=== PATIENT | male | born 1990 | race Caucasian/White ===

== ENCOUNTER 2016-08-14 10:29 | Emergency (ER) | payer SELFPAY ==
[~2016-08-14] VITALS: Ht 175.3 cm; Wt 78.2 kg
[~2016-08-14 10:29] MED LIST: OXYC1TAB3 PO
[2016-08-14 10:32] VITALS: TEMP 37.4; Ht 175.3 cm; Wt 78.2 kg
[2016-08-14] MEDS ORDERED: CLIN300C2 PO (11:22)
[2016-08-14] MEDS ORDERED: IBUP-1428 PO (11:22)
[2016-08-14] MEDS ORDERED: OXYC1TAB3 PO (11:22)
--- NOTE | 2016-08-14 11:23 | EMERGENCY ROOM VISIT NOTE ---
ED Visit Note First contact with patient: 10:54 Chief Complaint: Dental Pain History of Present Illness: This patient is a 25-year-old male who presents to the Emergency Department this morning for evaluation of their dental pain . Patient believes the pain is arising from RIGHT upper molar tooth which they report developed yesterday. They describe the pain as constant and they now report radiation to the face. They have tried dqsx-tdi-wxxwqum medications for the pain with minimal relief of symptoms. They report increased pain with eating and drinking. Patient rates his current discomfort as a 9/10. The patient does not have a dentist appointment set up at this time. Patient did have a dentist appointment during previous visit for this symptom, however he did not have the $1800 to have a root canal performed. Patient currently denies any associated fevers, chills, visual disturbances, neck pain/stiffness, or trismus. They report no drainage from the tooth. Patient is not a current smoker. Medications: No current medication. Allergies: Acetaminophen, hydrocodone, penicillins, tramadol, Vicodin PMH: No pertinent past medical history. SHx: Patient is a 25-year-old male who lives locally. ROS: All pertinent positive and negative review of systems are appropriately documented in the History of Present Illness. Physical Exam: VITAL SIGNS Vital signs and nursing notes were reviewed. GENERAL 25-year-old male appearing his stated age who is in no acute distress. Communicates well with provider and answers questions appropriately. HEAD Normocephalic, Atraumatic. EYES PERRL with EOMI bilaterally. EARS No deformities of external structures noted on gross examination bilaterally. No pain elicited with palpation of the tragus bilaterally. External auditory canals without discharge or otorrhea. Tympanic membranes pearly ragland without retraction or bulging. NOSE Midline and without cyanosis. No epistaxis or purulent drainage noted. Septum midline without deviation or septal hematoma noted. MOUTH/OROPHARYNX Without perioral cyanosis. Buccal mucosa pink and moist and without leukoplakia. Tongue midline with equal elevation of palate bilaterally. No tonsillar hypertrophy, erythema, or exudates noted. Fair dentition noted. The RIGHT 1st molar tooth is completely carious in the central portion of the tooth. Surrounding gums without erythematous, edematous changes or discharge. Exquisite tenderness to palpation of affected tooth. No trismus. No fluctuance to palpation or active drainage appreciated. No sublingual edema. NECK Neck with FROM. Supple to palpation. No lymphadenopathy noted. No nuchal rigidity. ED Course: Patient was seen and evaluated by myself. It was discussed with the patient at great length that the Emergency Department is not an appropriate place for continued treatment of dental pain issues. Patient acknowledges understanding. Patient will be placed on a course of Motrin 800 mg, Oxy IR #6, and Cleocin. Patient was educated on worrisome symptoms for return visit to the Emergency Department. Patient was discharged to home afebrile and in good condition. Impression: Odontalgia Discharge Instructions: You have been treated in the Emergency Department for Dental Pain. You have been prescribed OxyIR to be used for pain control. This is a narcotic medication. You cannot drive or consume alcohol while on this medicine. This medicine should only be used for pain that cannot be controlled with over-the- counter pain medicines. You were prescribed Cleocin to be taken as prescribed. This is an antibiotic. All antibiotics have the potential to cause diarrhea. Stop this medication and contact a medical provider if you were to develop any significant adverse side effects including: wheezing, shortness of breath, passing out, vomiting, or a diffuse rash. Always take antibiotics as directed and COMPLETE the ENTIRE course regardless of the improvement of your symptoms. You have been prescribed Motrin 800 mg. This is an anti-inflammatory medication used to help decrease your symptoms and improve your pain. Please take this medication as prescribed. It is best to take this medication with food. Please to not take this antibiotic with other NSAIDS including: Ibuprofen, Advil, Naproxen, Aspirin, Aleve, Celebrex, etc. For pain control, you can use the following cgtk-hoo-zhssxlq medicines (if >12 yo): - Regular strength (325mg/tab) Tylenol (acetaminophen) 2 tabs every 4-6 hours as needed. Do not exceed 12 tablets in a 24 hour period. Avoid taking more than 4 grams (4000 mg) of Tylenol per day. This includes any other sources of acetaminophen you may take on a regular basis. Refrain from smoking cigarettes or using chewing tobacco until you have been evaluated by your dentist. Keeping beverages lukewarm and consuming soft foods can decrease your pain. Warm compresses over the affected area may offer some relief. You MUST seek evaluation of your dental pain by a dentist following your visit to the Emergency Department. The Emergency Department is not capable of treating dental issues long-term. You should call your dentist as soon as possible to make an appointment for evaluation of your dental pain. Return to the emergency department if you develop the following symptoms despite treatment course outlined above: fever, intractable pain, increased redness, swelling, or purulent discharge. Problem List Medical Problems: (1) Broken arm Status: Resolved Current/Historical Medications Scheduled Clindamycin Hcl (Cleocin), 300 MG PO QID Scheduled PRN Ibuprofen (Motrin), 800 MG PO Q8H PRN for Pain Oxycodone Ir (Roxicodone Ir), 1-2 TAB PO Q4H PRN for Pain Allergies Coded Allergies: Acetaminophen (Unverified Allergy, Intermediate, RASH, 08/14/16) Hydrocodone (Unverified Allergy, Intermediate, RASH, 08/14/16) Penicillins (Verified Allergy, Unknown, unknown, 08/14/16) Tramadol (Verified Allergy, Unknown, Nausea, 08/14/16) Uncoded Allergies: VICODAN (Allergy, Mild, RASH, 05/08/16) Vital Signs Date Time Temp Pulse Resp B/P Pulse Ox O2 Delivery O2 Flow Rate FiO2 08/14/16 11:31 76 120/71 97 08/14/16 10:32 37.4 84 18 116/63 99 Room Air Departure Information Impression Primary Impression: Odontalgia Dispostion Home / Self-Care Condition GOOD Prescriptions Clindamycin Hcl (CLEOCIN) 300 Mg Cap 300 MG PO QID for 10 Days, #40 CAP Prov: Bob Barkley PA-C 08/14/16 Oxycodone Ir (Roxicodone Ir) 5 Mg Tab 1-2 TAB PO Q4H Y for Pain, #6 TAB For Initial Treatment Prov: Bob Barkley PA-C 08/14/16 Ibuprofen (Motrin) 800 Mg Tab 800 MG PO Q8H Y for Pain, #7 TAB Prov: Bob Barkley PA-C 08/14/16 Referrals No Doctor, Assigned (PCP) Patient Instructions My [facility] Additional Instructions You have been treated in the Emergency Department for Dental Pain. You have been prescribed OxyIR to be used for pain control. This is a narcotic medication. You cannot drive or consume alcohol while on this medicine. This medicine should only be used for pain that cannot be controlled with over-the- counter pain medicines. You were prescribed Cleocin to be taken as prescribed. This is an antibiotic. All antibiotics have the potential to cause diarrhea. Stop this medication and contact a medical provider if you were to develop any significant adverse side effects including: wheezing, shortness of breath, passing out, vomiting, or a diffuse rash. Always take antibiotics as directed and COMPLETE the ENTIRE course regardless of the improvement of your symptoms. You have been prescribed Motrin 800 mg. This is an anti-inflammatory medication used to help decrease your symptoms and improve your pain. Please take this medication as prescribed. It is best to take this medication with food. Please to not take this antibiotic with other NSAIDS including: Ibuprofen, Advil, Naproxen, Aspirin, Aleve, Celebrex, etc. For pain control, you can use the following oojo-bwy-ujmlerf medicines (if >12 yo): - Regular strength (325mg/tab) Tylenol (acetaminophen) 2 tabs every 4-6 hours as needed. Do not exceed 12 tablets in a 24 hour period. Avoid taking more than 4 grams (4000 mg) of Tylenol per day. This includes any other sources of acetaminophen you may take on a regular basis. Refrain from smoking cigarettes or using chewing tobacco until you have been evaluated by your dentist. Keeping beverages lukewarm and consuming soft foods can decrease your pain. Warm compresses over the affected area may offer some relief. You MUST seek evaluation of your dental pain by a dentist following your visit to the Emergency Department. The Emergency Department is not capable of treating dental issues long-term. You should call your dentist as soon as possible to make an appointment for evaluation of your dental pain. Return to the emergency department if you develop the following symptoms despite treatment course outlined above: fever, intractable pain, increased redness, swelling, or purulent discharge.
[2016-08-14 11:31] VITALS: BP 120/71; PULSE 76; O2SAT 97
== END 2016-08-14 11:32 | disposition home or self-care (01) ==
LOC: C.EDB 10:33 → C.EDD 11:32
DX: K08.89 Other specified disorders of teeth and supporting structures (principal); Z88.0 Allergy status to penicillin; Z88.5 Allergy status to narcotic agent; Z88.6 Allergy status to analgesic agent; Z88.8 Allergy status to other drugs, medicaments and biological substances

== ENCOUNTER 2017-06-09 21:41 | Emergency (ER) | payer SELFPAY ==
[~2017-06-09] VITALS: Ht 172.7 cm; Wt 81.7 kg
[2017-06-09 21:44] VITALS: TEMP 36.7; Ht 172.7 cm; Wt 81.7 kg
[2017-06-09] MEDS ORDERED: CEFTRIAXONE SOD 350MG/ML 1 GM VIAL IM STA (22:04)
[2017-06-09] MEDS ORDERED: AZITHROMYCIN 250 MG TAB PO STA (22:04)
[2017-06-09 22:24] LABS: URINE APPEARANCE CLEAR (CLEAR); URINE BILIRUBIN NEG (NEG); URINE COLOR YELLOW; URINE NITRITE NEG (NEG); URINE PH 5.5 (4.5-7.5); URINE SPECIFIC GRAVITY 1.027 (1.000-1.030); UROBILINOGEN NEG (NEG); ZZUR CULT IF INDIC CLEAN CATCH NO
[2017-06-09 22:28] LABS: MANUAL MICROSCOPIC REQUIRED? NO; REVIEW REQ? NO
--- NOTE | 2017-06-09 22:47 | EMERGENCY ROOM VISIT NOTE ---
History First contact with patient: 21:49 Chief Complaint: DYSURIA Stated Complaint: BLADDER PAIN, PAIN URINATING, BECKER TO [facility] Nursing Triage Summary: pt states "the girl i've been sleeping with just got tested positive for std's. I don't have insurance, i was wondering if i could get tested. I don't really have symptoms. I wouldn't have known otherwise." pt states partner tested positive for chlamydia and herpes. pt reports small amount of burning with urination that began today. History of Present Illness The patient is a 26 year old male who presents to the Emergency Room with complaints of dysuria and exposure to Chlamydia and herpes. Patient states he just informed his girlfriend that she tested positive for chlamydia and herpes. Patient states that he's been having some dysuria. Patient denies rash, penile discharge, penile pain, testicular pain, abdominal pain, fevers, sore throat, rectal pain. No prior STIs. Patient is requesting treatment for this. Review of Systems See HPI for pertinent positives & negatives. A total of 10 systems reviewed and were otherwise negative. Past Medical/Surgical History Medical Problems: (1) Broken arm Family History No significant family history Social History Smoking Status: Never Smoker Drug Use: none Marital Status: in relationship Housing Status: lives with family Occupation Status: employed Current/Historical Medications No Active Prescriptions or Reported Meds Physical Exam Vital Signs Date Time Temp Pulse Resp B/P (MAP) Pulse Ox O2 Delivery O2 Flow Rate FiO2 06/09/17 21:44 36.7 66 18 141/79 97 Room Air Physical Exam VITALS: Vitals are noted on the nurse's note and reviewed by myself. Vital signs stable. GENERAL: Pleasant male, in no acute distress, nondiaphoretic, well-developed well-nourished. SKIN: Capillary reflex less than 2 seconds. HEENT: Normocephalic. PERRLA. EOMI. Nares patent. Mucous membranes moist. Neck is supple without nuchal rigidity. HEART: Regular rate and rhythm without murmurs gallops or rubs. LUNGS: Clear to auscultation bilaterally without wheezes, rales or rhonchi. No retractions or accessory muscle use. ABDOMEN: Positive bowel sounds x 4. Normal tympanic percussion. Soft, nontender, without masses or organomegaly. Mandujano sign negative. No guarding or rebound tenderness. exam: Normal external male genitalia without rashes or lesions. Cultures taken and sent. Service Girl present MUSCULOSKELETAL: No gross musculoskeletal defects. NEURO: Patient was alert and oriented to person place and time. Normal sensation to light and sharp touch No focal neurological deficits. Medical Decision & Procedures Laboratory Results Test 06/09/17 22:05 06/09/17 22:09 Urine Color YELLOW Urine Appearance CLEAR (CLEAR) Urine pH 5.5 (4.5-7.5) Urine Specific [place] 1.027 (1.000-1.030) Urine Protein NEG (NEG) Urine Glucose (UA) NEG (NEG) Urine Ketones NEG (NEG) Urine Occult Blood NEG (NEG) Urine Nitrite NEG (NEG) Urine Bilirubin NEG (NEG) Urine Urobilinogen NEG (NEG) Urine Leukocyte Esterase NEG (NEG) Medications Administered Medications (Trade) Dose Ordered Sig/Chun Route Start Time Stop Time Status Last Admin Dose Admin Ceftriaxone Sodium (Rocephin Im) 250 mg NOW STAT IM 06/09/17 22:04 06/09/17 22:07 DC 06/09/17 22:19 250 MG Azithromycin (Zithromax Tab) 1,000 mg NOW STAT PO 06/09/17 22:04 06/09/17 22:07 DC 06/09/17 22:19 1,000 MG ED Course Prior records reviewed and summarized as above. Triage Nursing notes reviewed. The patient's history was concerning for dysuria with STI exposure. Differential diagnosis: Etiologies such as chlamydia, gonorrhea, herpes, UTI, as well as others were entertained.. Physical examination: As above ER treatment provided: Rocephin, Zithromax On reassessment the patient felt better. Diagnostics interpreted by me: The labs revealed negative urine GC, depending This appears to be possible STI. Patient was profoundly treated pending culture results. He was advised to abstain from intercourse until culture results are reviewed and both have tested negative. He is advised to always use protection when having intercourse and follow-up family care in a few days or here in the ER sooner for fevers, pain, worsening signs or symptoms or as needed. By the evaluation outlined above emergent etiologies such as UTI, as well as others were deemed relatively unlikely. The pt informed about the findings as listed above. All questions were answered and pleased with the treatment. Return instructions were outlined and the patient was discharged in stable condition. Referral: The patient was referred back to primary care physician for follow-up in 2 to 3 days for a recheck of the current condition. Medical Decision As above Medication Reconcilliation Current Medication List: was personally reviewed by me Blood Pressure Screening Patient's blood pressure: Normal blood pressure Impression Primary Impression: Need for prophylaxis against sexually transmitted diseases Additional Impression: Dysuria Departure Information Dispostion Home / Self-Care Condition GOOD Prescriptions No Active Prescriptions or Reported Meds Referrals Luis Espitia Jr,D.O. (PCP) Patient Instructions My [facility] Additional Instructions Recommend no intercourse until your review your culture results and are negative. Always use protection when having intercourse. Ibuprofen(Motrin, Advil) may be used for fever or pain. Use 600mg every six hours as needed. Take with food. Avoid using more than 2400mg in a 24 hour period. Do not use 2400mg per day for more than three consecutive days without physician direction. Prolonged inappropriate use can lead to stomach upset or ulcers. (AND/OR) Acetaminophen(Tylenol) may be used for fever or pain. Use 1000mg every six hours as needed. Avoid using more than 3000mg in a 24 hour period. Rest and drink plenty of fluids as tolerated. Continue current medications. Return to the ER immediately for penile pain, abdominal pain, vomiting, fevers, chest pains, difficulty breathing, worsening of your condition, or as needed. Follow up with your primary physician in 2-3 days for a recheck of your current condition. Problem Qualifiers
[2017-06-09 23:00] VITALS: BP 122/57; PULSE 65; O2SAT 98
== END 2017-06-09 23:00 | disposition home or self-care (01) ==
LOC: C.EDB 21:43 → C.EDC 23:00
DX: Z29.8 Encounter for other specified prophylactic measures (principal); Z20.2 Contact with and (suspected) exposure to infections with a predominantly sexual mode of transmission; R30.0 Dysuria

== ENCOUNTER 2025-06-21 21:57 | Inpatient (IN) ==
--- NOTE | 2025-06-21 22:09 | Emergency Department Note ---
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 unremarkable. The kidneys are normal in size and attenuation. There is no hydronephrosis or perinephric fat stranding. No renal calculi or renal masses are identified. The ureters are normal in caliber and no ureteral calculi are seen. The bladder is normal in contour. Pelvic viscera are unremarkable. Fecal and gaseous distension of colon. No focal or diffuse bowel wall thickening or evidence of bowel obstruction is identified. No imaging evidence of appendicitis. Abdominal and pelvic vasculature is patent. No adenopathy or fluid collections are seen. No aggressive appearing osseous lesions are identified. IMPRESSION: Mild pneumomediastinum noted. Hepatic steatosis. Fecal and gaseous distension of colon. Electronically signed by Raymundo Akhtar 06-22-2025 12:36 AM Chest X-Ray 06/21/25 22:10 Exam(s): XR CXR 1 VIEW EXAM: XR Chest, 1 View CLINICAL HISTORY: Reason for exam: Left sided chest/abd pain. TECHNIQUE: Frontal view of the chest. COMPARISON: No relevant prior studies available. FINDINGS: Lungs: No consolidation. Pleural space: No pleural effusion is seen. No pneumothorax. Heart: The heart is normal in size. Mediastinum: Unremarkable. Bones/joints: Unremarkable. IMPRESSION: No acute pulmonary disease. Electronically signed by: David Ramirez MD 06/22/25 00:32 AM Chest CTA 06/21/25 22:45 EXAM: CT angio chest PE protocol CLINICAL HISTORY: PE TECHNIQUE: Contiguous axial images were obtained from the neck base through the upper abdomen following intravenous administration of iodinated contrast material. Angiographic images were processed, 3D MIP images were acquired for interpretation. If IV contrast material had not been administered, the likelihood of detecting abnormalities relevant to the patient's condition would have been substantially decreased. Coronal and sagittal 3-D MIPs were likewise performed and indicated to increase the sensitivity of detectin diffuse clinically relevant pathology. CT scan was performed according to ALARA (as low as reasonably achievable). COMPARISON: 22:25:55 ASSESSMENT TECHNICIAN. FINDINGS: Mild pneumomediastinum is noted involving facial plane of superior and middle mediastinal structure. Adequate contrast bolus without evidence of pulmonary embolism. The central airways are patent. The lungs are clear. No pleural effusion. The heart, aorta, and pulmonary arteries are of normal size and configuration. There are no appreciable coronary artery and aortic atherosclerotic calcifications. No pericardial effusion is identified. The thyroid is unremarkable. No mediastinal, hilar, or axillary lymphadenopathy is noted. No suspicious lytic or sclerotic osseous lesions are identified. IMPRESSION: 1. No evidence of pulmonary embolism or pulmonary disease. Mild pneumomediastinum is noted involving facial plane of superior and middle mediastinal structure.-new finding. No other new interval abnormality since prior study. Electronically signed by Raymundo Akhtar 06-22-2025 12:[address] 06/22/25 00:54 EXAM: CT chest diagnostic w con CLINICAL HISTORY: Oral contrast to eval for esoph perf etc TECHNIQUE: Contiguous axial images were obtained from the neck base through the upper abdomen following administration of oral conrast only. In addition, sagittal and coronal reconstructions were performed. CT scan was performed according to ALARA (as low as reasonably achievable). COMPARISON: 22:48:25 ASSESSMENT TECHNICIAN . FINDINGS: Mild pneumomediastinum is noted involving facial plane of superior and middle mediastinal structure. No obvious leakage of oral contrast / no evidence of esophageal perforation. The lungs are clear, with no focal areas of consolidation. No pulmonary nodules are seen. The central airways are patent. There are no pleural effusions. No pneumothorax is seen. No obvious lymphadenopathy seen. The visualized thyroid is unremarkable. No cardiomegaly. No pericardial effusion is identified. Imaged portions of the upper abdomen are unremarkable. No aggressive appearing osseous lesions are identified. IMPRESSION: Mild pneumomediastinum is noted involving facial plane of superior and middle mediastinal structure.-stable. No obvious leakage of oral contrast / no evidence of esophageal perforation. Electronically signed by Raymundo Akhtar 06-22-2025 02:27 AM Discharge Plan Visit Data Chief Complaint: Vomiting Stated Complaint: VOMITING, DEHYRDATED ED Provider: Suzy Payne ED Midlevel Provider: Perlita Mueller Discharge Problem: Pneumomediastinum, Dehydration, Nausea & vomiting, Tachycardia, Sepsis Patient Disposition: Admitted As Inpatient Condition: Serious Discharge Instructions Interventions: ED Discharge Assessment Last Done: 06/22/25 05:05
[2025-06-21] MEDS: SODIUM CHLORIDE 0.9% 1,000 ML IV ONE ×2 (22:17)
[2025-06-21] MEDS: FAMOTIDINE 20MG IV PUSH 20 MG/5 ML SYR IV STA (22:18)
[2025-06-21] MEDS: ONDANSETRON INJ 2 MG/ML 2 ML VIAL IV STA (22:18)
[2025-06-21] MEDS: ACETAMINOPHEN 1,000 MG/100 ML VIAL IV STA (22:19)
[2025-06-21 22:26] LABS: Hematocrit (blood only) 44.6 % (42.0-52.0); Hemoglobin 16.3 g/dL (14.0-18.0); Immature Granulocytes # (auto) 0.06 K/uL (0.01-0.20); Immature Granulocytes % (auto) 0.4 %; Mean Corpuscular Hemoglobin 29.7 pg (25.0-34.0); Mean Corpuscular Volume 81.4 fL (80.0-100.0); Platelet Count 413 K/uL (130-400); RDW Standard Deviation 38.0 fL (36.4-46.3); Red Blood Count 5.48 M/uL (4.70-6.10); White Blood Count 14.72 K/ul (4.8-10.8)
[2025-06-21 22:44] LABS: Alanine Aminotransferase 29.0 U/L (7-52); Albumin Globulin Ratio 1.6 (0.9-2); Albumin Level 5.3 gm/dl (3.4-5.0); Alkaline Phosphatase 110.0 U/L (34-104); Anion Gap 15.0 (3-11); Bilirubin,Total 0.9 mg/dl (0.2-1.0); Blood Urea Nitrogen 17.0 mg/dl (6-23); Calcium 10.3 mg/dl (8.6-10.3); Carbon Dioxide 27.0 mmol/L (21-32); Chloride 103.0 mmol/L (98-107); Creatinine Clr Calc Pharmacy 83.9 ml/min; Globulin 3.4 gm/dl (2.5-4.0); Glucose 219.0 mg/dl (70-99(Fasting)); Lipase 10.0 U/L (11-82); Magnesium 1.8 mg/dl (1.7-2.4); Potassium 3.0 mmol/L (3.5-5.1); Sodium 145.0 mmol/L (136-145); Total Protein 8.7 gm/dl (6.0-8.3)
[2025-06-21] MEDS: SODIUM CHLORIDE 0.9% 500 ML IV ONE (22:55)
[2025-06-21] MEDS: LORazepam 1 MG/1 ML SYR ED Inj Use IV STA (23:22)
[2025-06-21] MEDS: OPTIRAY 320 125ml IV ONE (23:56)
[2025-06-22 00:14] LABS: Influenza A virus by PCR Negative (Neg); Influenza B virus by PCR Negative (Neg); SARS CoV2 RNA(COVID-19) Ceph NEGATIVE (Negative)
[2025-06-22 00:33] LABS: Appearance Urine Clear (Clear); Bacteria Urine Automated None Seen (None Seen); Cast Urine Automated >20 /lpf (0-2); Glucose Urine UA 1+ (Negative); RBC Urine Automated 0-2 /hpf (0-2); WBC Urine Automated 0-5 /hpf (0-5)
--- NOTE | 2025-06-22 00:33 | CT Scan Report ---
EXAM: CT angio chest PE protocol CLINICAL HISTORY: PE TECHNIQUE: Contiguous axial images were obtained from the neck base through the upper abdomen following intravenous administration of iodinated contrast material. Angiographic images were processed, 3D MIP images were acquired for interpretation. If IV contrast material had not been administered, the likelihood of detecting abnormalities relevant to the patient's condition would have been substantially decreased. Coronal and sagittal 3-D MIPs were likewise performed and indicated to increase the sensitivity of detectin diffuse clinically relevant pathology. CT scan was performed according to ALARA (as low as reasonably achievable). COMPARISON: 22:25:55 MAMMOGRAPHER. FINDINGS: Mild pneumomediastinum is noted involving facial plane of superior and middle mediastinal structure. Adequate contrast bolus without evidence of pulmonary embolism. The central airways are patent. The lungs are clear. No pleural effusion. The heart, aorta, and pulmonary arteries are of normal size and configuration. There are no appreciable coronary artery and aortic atherosclerotic calcifications. No pericardial effusion is identified. The thyroid is unremarkable. No mediastinal, hilar, or axillary lymphadenopathy is noted. No suspicious lytic or sclerotic osseous lesions are identified. IMPRESSION: 1. No evidence of pulmonary embolism or pulmonary disease. Mild pneumomediastinum is noted involving facial plane of superior and middle mediastinal structure.-new finding. No other new interval abnormality since prior study. Electronically signed by Raymundo Akhtar 06-22-2025 12:33 AM
--- NOTE | 2025-06-22 00:33 | XRay Report ---
Exam(s): XR CXR 1 VIEW EXAM: XR Chest, 1 View CLINICAL HISTORY: Reason for exam: Left sided chest/abd pain. TECHNIQUE: Frontal view of the chest. COMPARISON: No relevant prior studies available. FINDINGS: Lungs: No consolidation. Pleural space: No pleural effusion is seen. No pneumothorax. Heart: The heart is normal in size. Mediastinum: Unremarkable. Bones/joints: Unremarkable. IMPRESSION: No acute pulmonary disease. Electronically signed by: David Ramirez MD 06/22/25 00:32 AM
--- NOTE | 2025-06-22 00:36 | CT Scan Report ---
EXAM: CT abd pelvis IV con only CLINICAL HISTORY: Abdominal pain, N/V TECHNIQUE: Contiguous axial images were obtained from the level of the diaphragm to the pubic symphysis with intravenous contrast. Coronal and sagittal reconstructions were likewise performed and indicated to increase the sensitivity for detecting clinically relevant pathology. If IV contrast material had not been administered, the likelihood of detecting abnormalities relevant to the patient's condition would have been substantially decreased. CT scan was performed according to ALARA (as low as reasonably achievable). COMPARISON: None. FINDINGS: Mild pneumomediastinum noted. The visualized lung bases are clear. The liver is normal in size and reduced attenuation. No focal liver lesions are seen. There is no intra or extrahepatic biliary ductal dilatation. Hepatic vasculature is patent. The gallbladder is present. The spleen, pancreas, and adrenal glands are unremarkable. The kidneys are normal in size and attenuation. There is no hydronephrosis or perinephric fat stranding. No renal calculi or renal masses are identified. The ureters are normal in caliber and no ureteral calculi are seen. The bladder is normal in contour. Pelvic viscera are unremarkable. Fecal and gaseous distension of colon. No focal or diffuse bowel wall thickening or evidence of bowel obstruction is identified. No imaging evidence of appendicitis. Abdominal and pelvic vasculature is patent. No adenopathy or fluid collections are seen. No aggressive appearing osseous lesions are identified. IMPRESSION: Mild pneumomediastinum noted. Hepatic steatosis. Fecal and gaseous distension of colon. Electronically signed by Raymundo Akhtar 06-22-2025 12:36 AM
[2025-06-22] MEDS: PROMETHAZINE 25 MG/51 ML BAG IV STA (00:54)
[2025-06-22 00:58] LABS: Anion Gap 10.0 (3-11); Blood Urea Nitrogen 13.0 mg/dl (6-23); Calcium 8.4 mg/dl (8.6-10.3); Carbon Dioxide 25.0 mmol/L (21-32); Chloride 109.0 mmol/L (98-107); Creatinine Clr Calc Pharmacy 114.4 ml/min; Glucose 128.0 mg/dl (70-99(Fasting)); Potassium 3.1 mmol/L (3.5-5.1); Sodium 144.0 mmol/L (136-145)
[2025-06-22] MEDS: MoRPHine SULFATE 4 MG/ML 1 ML CARP\\VIAL IV STA (01:22)
[2025-06-22] MEDS: KETOROLAC TROMETHAMINE 15 MG/ML VIAL IV ONE (01:23)
[2025-06-22] MEDS: PIPERACILLIN/TAZOBACTAM 4.5 GM/100 ML BAG IV ONE (01:43)
--- NOTE | 2025-06-22 02:28 | CT Scan Report ---
EXAM: CT chest diagnostic w con CLINICAL HISTORY: Oral contrast to eval for esoph perf etc TECHNIQUE: Contiguous axial images were obtained from the neck base through the upper abdomen following administration of oral conrast only. In addition, sagittal and coronal reconstructions were performed. CT scan was performed according to ALARA (as low as reasonably achievable). COMPARISON: 22:48:25 ROLL CARRIER . FINDINGS: Mild pneumomediastinum is noted involving facial plane of superior and middle mediastinal structure. No obvious leakage of oral contrast / no evidence of esophageal perforation. The lungs are clear, with no focal areas of consolidation. No pulmonary nodules are seen. The central airways are patent. There are no pleural effusions. No pneumothorax is seen. No obvious lymphadenopathy seen. The visualized thyroid is unremarkable. No cardiomegaly. No pericardial effusion is identified. Imaged portions of the upper abdomen are unremarkable. No aggressive appearing osseous lesions are identified. IMPRESSION: Mild pneumomediastinum is noted involving facial plane of superior and middle mediastinal structure.-stable. No obvious leakage of oral contrast / no evidence of esophageal perforation. Electronically signed by Raymundo Akhtar 06-22-2025 02:27 AM
[2025-06-22] MEDS: PANTOprazole 40 MG/10 ML SYR IV ONE (02:57)
[2025-06-22] MEDS: LACTATED RINGER'S 1,000 ML IV SCH (03:25)
[2025-06-22] MEDS: POTASSIUM CHLORIDE / WTR 10 MEQ/100 ML PLCT IV SCH ×2 (03:26→13:43)
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
[2025-06-22 04:00] LABS: Amphetamines+Metham, Urine Neg (Neg); MDMA (Ecstacy), Urine Neg (Neg); Marijuana, Urine Pos (Neg)
[2025-06-22 04:05] LABS: Anion Gap 13.0 (3-11); Blood Urea Nitrogen 14.0 mg/dl (6-23); Calcium 9.2 mg/dl (8.6-10.3); Carbon Dioxide 25.0 mmol/L (21-32); Chloride 109.0 mmol/L (98-107); Creatinine Clr Calc Pharmacy 110.7 ml/min; Glucose 165.0 mg/dl (70-99(Fasting)); Magnesium 1.7 mg/dl (1.7-2.4); Potassium 3.2 mmol/L (3.5-5.1); Sodium 147.0 mmol/L (136-145)
[2025-06-22] MEDS: MAGNESIUM SULFATE / D5W 1 GM/100 ML BAG IV SCH (04:23)
[2025-06-22] MEDS ORDERED: ACETAMINOPHEN 1,000 MG/100 ML VIAL IV PRN (05:12)
[2025-06-22] MEDS ORDERED: diphenhydrAMINE 50 MG/ML VIAL IV PRN ×2 (05:12→17:51)
[2025-06-22] MEDS ORDERED: MoRPHine SULFATE 4 MG/ML 1 ML CARP\\VIAL IV PRN (05:12)
[2025-06-22] MEDS: SODIUM CHLORIDE 0.9% 500 ML IV SCH (05:27)
--- NOTE | 2025-06-22 05:41 | Billing Data ---
Date of Service June 22, 2025 Coding Level of Care Code 00869 CRITICAL CARE
[2025-06-22] MEDS: PIPERACILLIN/TAZOBACTAM 4.5 GM/100 ML BAG IV SCH (07:52)
[2025-06-22] MEDS: PANTOprazole 40 MG/10 ML SYR IV SCH (07:52)
[2025-06-22] MEDS ORDERED: CEFEPIME 2000MG 2,000 MG/20 ML SYR IV SCH (08:00)
--- NOTE | 2025-06-22 09:07 | Hospitalist Progress Note ---
Date of Service June 22, 2025 Assessment & Plan (1) Hypokalemia: (2) Tachycardia: (3) Nausea & vomiting: (4) Pneumomediastinum: (5) Fentanyl dependence: (6) Opioid withdrawal: Plan The patient is a 34-year-old male with no significant past medical history who presents to the emergency department with his mother for evaluation of nausea, vomiting and dehydration. He reports that on Sunday evening, 06/19, he ate chicken noodle soup which was thawed and frozen recurrently. After admission he also admitted he takes fentanyl regularly and last time he took was on 06/19( Sunday). He has been taking regularly since 1.5 years. Clinical presentation including tachycardia, HTN, dilated pupil in background of fentanyl use, Fentanyl positive on UDSA, last dose 3 days prior, nausea, vomiting defines fentanyl withdrawal, with COWS of 12 this morning, symptoms. He does have some elevated WBCs, however he was pretty dehydrated on on arrival. Admitted in PCU status, patient persisted in hyperdynamic vitals, however improving. #Fentanyl withdrawal; mild on 06/22 AM. *last dose on 06/19/2025. - COWS: 12. - Sx: HTN, Pupil dilation, Tachycardia, Flushing, Nausea, vomiting, anxious. - Patient initially treated symptomatically with Diazepam. - After careful evaluation and extensive discussion with Lanre he is willing ot try Suboxone therapy. Even though COWs opioid withdrawal score was 10 by afternoon, given it was 12 this morning and patient is admitted in the hospital and we also got appointment with Dr. Ekaterina Stein on 06/24/2025 who is willing to follow him for outpatient refill of Suboxone, we discussed with pharmacist. They agree with starting Suboxone. Given fentanyl might last longer in system, we will start with low dose 2 mg/0.25 mg of Suboxone. Plan to escalate dose depending on patient's tolerance, tomorrow. - Lanre made aware of possible withdrawal symptoms getting worse after Suboxone. He agrees with trial of Suboxone. Plan: Suboxone 2/0.25 mg Stat. Reassess in 1 hour. If no withdrawal repeat Subo xone 2 mg, until max dose of 8 mg. Hydroxyzine 25 mg PO as needed for agitation Benadryl 25 mg Iv as needed for nausea #QT prolongation - Avoid QT prolonging meds. - Optimize Mg/ K: Goal Mg. 2, K> 4. - Repeat EKG tomorrow. #Nausea/ Vomiting - Likely because of Fentanyl as well. - No diarrhoea decreases likelihood of food poisoning. Keep eye on this. Given h/o significant source for food poisoning, if episode of diarrhoea, will plan stool studies. #Hypokalemia - K: 3.2, BMP Q4H - Repeat K: 3.2, KCL IV 10 mEQ X 4 - Pending repeat lab. #HTN - Presentation as opioid withdrawal. - BP as high as 170s/ 100s. - Will plan for clondine is BP >200. Dispo: Pending stabilization, Continue PCU tele DVT prophylaxis: Non pharma Diet: Clear liquid, If persistent vomiting.nausea; keep NPO Admission and Anticipated Discharge Date Admission Date: June 22, 2025 Supervising Physician Co-Signing Physician Notes Resident Physician Supervision Note: I personally examined the patient and verified all guerra points of history and exam, discussed case, and agree with decision making with Dr. Cornejo Did speak to the patient and also spoke to the patient's mother with both the mother and the patient in her room we asked permission to disclose information to the patient's mother which the patient agreed to. At this point time patient is agreeable to considering outpatient opiate addiction treatment and we did procure an outpatient provider who can prescribe Suboxone therapy today. Therefore we will begin Suboxone therapy as an inpatient. For the patient's pneumomediastinum he continues to improve having improved vital signs and we are going to continue pip-tazo with eventual transition to Augmentin. Patient is mildly hypertensive and tachycardic but this is improving over the day. Pulmonary medicine did see the patient and offers no additional diagnosis or therapeutic interventions. Lungs are clear bilaterally does have some pleuritic mediastinal pain Continue supportive care with eventual transition outpatient treatment for opiate addiction I discussed the case with the resident and agree with the findings and plan as documented in the note. Any exceptions or clarifications are listed here: Documented By: Erick Morris MD Subjective Mr. Zhu is 34 yo admitted with fentanyl withdrawal symptoms, COWS 12 this morning. He does have h/o regular fentanyl intake daily for last 1.5 years and has not been taking since Sunday. His brother recently with ROCHEL[facility], Methamphetamine was tested per patient mother. Lanre is in relative calmer state of mind, when I reassessed in afternoon, He does not admit taking any other recreational substance except regular fentanyl and occasional Marijuana. Lanre was still flushed, occasionally shaking his body on bed, tachycardic, hypertensive until this afternoon. Mom was on bedside this morning, Lanre initially did not want to discuss his situation especially fentanyl use with his mom, but late when I revisited him afternoon, he shared that he ended up telling his mom. 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 Does not have friend [email or web address] to understand this or he feels comfortable sharing this. Last time he snorted fentanyl was on 06/19 ( 3 days back). He [facility] to get this, his brother who was 2 year older than him, often helped with the supply, now he is no more. Lanre expresses interest to get out of opioid use. 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 He feels he is ready to start Suboxone. He already knows about this, he has never tried this in past, but was willing to try especially after he learned it during borther's incidence. Review of Systems Review of Systems: As per HPI Physical Exam Physical Exam: Constitutional: Anxious looking, Occasional shaking of body, no tremors on outstretched hands, diffusely flushed skin, snorting frequently. Occasional hiccups noted. HEENT: Moderately dilated pupil, Atraumatic, Normocephalic, conjunctival injection+, CVS: S1 S2 no murmur, Regular Rhythm, no LE edema Respiratory: BL equal air entry with NVBS. No rhonchi, wheezes, or crackles. No increased work of breathing GI: Soft, Nondistended, Nontender, Normal Bowel sounds + MSK: No gross deformities noted Skin: Hot, Dry, diffuse flushing, no localized rash or piloerection noted. Neuro: Alert, Oriented to TPP, No Focal deficit Psych: Cooperative on exam, able to make decision Results & Data Results & Data Vital Signs (Past 12 Hours) Vital Signs Temp Pulse Pulse Resp BP BP Pulse Ox 06/22/25 09:00 37 C 110 H 16 167/100 H 91 06/22/25 08:00 107 H 22 172/93 H 91 06/22/25 08:00 37 C 06/22/25 07:00 102 H 17 177/100 H 90 06/22/25 06:36 37.1 C 104 H 25 H 175/94 H 94 06/22/25 06:30 113 H 17 95 06/22/25 06:00 37.1 C 120 H 24 172/126 H 97 06/22/25 05:59 164/88 H 06/22/25 05:12 37.3 C 06/22/25 05:12 06/22/25 05:11 37.3 C 108 H 28 H 186/106 H 99 06/22/25 05:09 37.3 C 122 H 15 186/106 H 93 06/22/25 05:05 06/22/25 05:03 116 H 16 97 06/22/25 05:00 06/22/25 05:00 37.3 C 108 H 18 186/106 H 99 06/22/25 04:32 37.4 C 115 H 20 178/98 H 95 06/22/25 03:36 104 H 20 167/105 H 95 06/22/25 02:30 115 H 22 167/88 H 95 06/22/25 02:13 132 H 06/22/25 01:30 120 H 22 155/87 H 95 06/22/25 00:31 182/84 H 06/22/25 00:25 37.2 C 114 H 22 193/88 H 97 06/21/25 22:48 95 06/21/25 22:47 157/119 H 06/21/25 22:18 84 06/21/25 21:59 36.8 C 111 H 19 190/101 H 96 Pulse Ox O2 Del Method O2 Del Method 06/22/25 09:00 Room Air 06/22/25 08:00 Room Air 06/22/25 08:00 06/22/25 07:00 06/22/25 06:36 Room Air 06/22/25 06:30 Room Air 06/22/25 06:00 Room Air 06/22/25 05:59 06/22/25 05:12 06/22/25 05:12 99 Room Air 06/22/25 05:11 Room Air 06/22/25 05:09 Room Air 06/22/25 05:05 Room Air 06/22/25 05:03 Room Air 06/22/25 05:00 Room Air 06/22/25 05:00 Room Air 06/22/25 04:32 Room Air 06/22/25 03:36 Room Air 06/22/25 02:30 Room Air 06/22/25 02:13 06/22/25 01:30 Room Air 06/22/25 00:31 06/22/25 00:25 06/21/25 22:48 Room Air 06/21/25 22:47 06/21/25 22:18 06/21/25 21:59 Room Air
[2025-06-22 09:24] LABS: Anion Gap 9.0 (3-11); Blood Urea Nitrogen 14.0 mg/dl (6-23); Calcium 8.8 mg/dl (8.6-10.3); Carbon Dioxide 28.0 mmol/L (21-32); Chloride 110.0 mmol/L (98-107); Creatinine Clr Calc Pharmacy 132.5 ml/min; Glucose 127.0 mg/dl (70-99(Fasting)); Magnesium 2.1 mg/dl (1.7-2.4); Potassium 3.2 mmol/L (3.5-5.1); Sodium 147.0 mmol/L (136-145)
--- NOTE | 2025-06-22 09:26 | Pulmonary Consultation ---
Date of Consultation June 22, 2025 Assessment & Plan (1) Pneumomediastinum: (2) Nausea & vomiting: Plan Patient is a 34-year-old male who presented to the hospital for evaluation of chest pain, nausea, vomiting. This patient had been ill for approximately 48 hours prior to this. Thought he had food poisoning. Also endorses a history of heavy marijuana use. The patient was found to have pneumomediastinum on CT imaging without pneumothorax. No evidence of contrast leakage from the esophagus. Pulmonary has been consulted for further recommendations. Diagnoses: Pneumomediastinum Vomiting, marijuana use, likely hyperemesis syndrome Recommendations/plan: I personally reviewed his CT imaging. He has some mild pneumomediastinum. I do not see any evidence of pneumothorax. The patient does not have any recent coughing. He was retching and vomiting a lot however. Pneumomediastinum likely related to esophageal etiology rather than airway. May have developed a small tear in the esophagus. CT with oral contrast did not show any obvious leakage, could consider GI con sultation for further evaluation. Has been started on Zosyn, would continue this for now. No further recommendations from a pulmonary standpoint. Will sign off. Please call directly with any questions. History of Present Illness Reason for Consultation: Pneumomediustinum Requesting Physician: Dr. Cornejo Attending Physician: Erick Morris MD History of Present Illness Patient is a 34-year-old male with a past medical history significant for THC use. The patient presented to the hospital on 06/21/2025 for evaluation of nausea, vomiting and dehydration. The patient endorsed that on the evening of 06/19/2025 he ate what he thought was bad chicken noodle soup and he started vomiting on 06/20/2025. He was having severe vomiting with retching. The patient then developed chest discomfort and persistent vomiting and presented to the hospital. In the emergency department the patient was found to be tachycardic with some mild lactic acidosis which improved after fluid resuscitation. He had some hypokalemia and hypomagnesemia. Viral PCR was negative.Imaging of the chest with x-ray chest x-ray was obtained which showed no acute pulmonary disease. CT angio chest was then obtained which did not show evidence of PE however pneumomediastinum was appreciated involving the fascial planes and superior and middle mediastinal structures. No pneumothorax was appreciated. Lungs were clear. The patient was then taken for imaging of the CT chest with oral contrast which did not show any obvious leakage of oral contrast which would suggest esophageal perforation. The patient was admitted to the hospital. He was continued on IV fluids. Was started on Zosyn. Pulmonary was consulted for pneumomediastinum. When I evaluated the patient he is resting comfortably in bed. He is still tachycardic. Appears flushed. He says that he is having some mild chest discomfort, noticing it in the bottom of his thoracic cavity. Denies any pain in his neck or central chest. He denies any previous pulmonary disorders. He does endorse smoking marijuana very heavily. 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 On exam his lungs are clear. I do not appreciate any subcutaneous emphysema in the neck or upper chest. The patient denies any coughing recently. Denies a history of asthma. Allergies Allergy/AdvReac Type Severity Reaction Status Date / Time hydrocodone Allergy Intermediate RASH Verified 04/17/23 09:54 Penicillins Allergy Unknown unknown Verified 04/17/23 09:54 tramadol Allergy Unknown Nausea Verified 04/17/23 09:54 Home Medications Medication Instructions Recorded Confirmed Type No Known Home Medications 06/21/25 06/21/25 History Patient History Family History Mother Ulcerative colitis Social History Smoking Status: Current every day smoker Tobacco Type: E-cigarettes / Vaping Hx Alcohol Use: No Hx Substance Use: Yes (Pt reports that he 'hits 20 vapes per day of marijuana') Last Used Substance: Unknown Preferred Language: Citizen Of [place] Communication Ability: Effective Speech Therapist Required: No Beliefs That Will Affect Care: None marital status: Current Living Situation: Alone current occupational status: employed current occupation: Self How many Children do You have: 0 Other Information That Helps Us Care for You: No Feels Safe at Home: Yes Safety Concerns: Feels Safe At This Time Diet: regular during the past year weight has: remained stable Assistive Devices: None Review of Systems Review of Systems: A 12 point review of systems was obtained in detail. Negative except as noted in HPI. Physical Exam Physical Exam: Physical examination: General: Appears stated age, flushed, resting comfortably in bed, not in distre ss at this time. HEENT: Normocephalic, atraumatic. Extraocular movements intact. Sclera are nonicteric. No JVD appreciated. No crepitus appreciated in the neck. Skin: Flushed. No rashes. No crepitus appreciated on the chest wall. Cardiovascular: Sinus tachycardia. No murmurs appreciated. No significant lower extremity edema. Lungs: Clear bilaterally, no wheezing appreciated. No crackles. Nontachypneic. Resting comfortably on room air. Abdomen: Nondistended, nontender to palpation. No masses appreciated. Musculoskeletal: Normal muscle mass and tone. No gross joint deformity abnorm alities. No effusions appreciated. Neurologic: Awake and alert, oriented. CN II through XII are grossly intact. Speech is fluent. Nonfocal exam. Psychiatric: Appropriate cooperative during my exam. Results & Data Results & Data Vital Signs (Past 12 Hours) Vital Signs Temp Pulse Pulse Resp BP BP Pulse Ox 06/22/25 09:00 37 C 110 H 16 167/100 H 91 06/22/25 08:00 107 H 22 172/93 H 91 06/22/25 08:00 37 C 06/22/25 07:00 102 H 17 177/100 H 90 06/22/25 06:36 37.1 C 104 H 25 H 175/94 H 94 06/22/25 06:30 113 H 17 95 06/22/25 06:00 37.1 C 120 H 24 172/126 H 97 06/22/25 05:59 164/88 H 06/22/25 05:12 37.3 C 06/22/25 05:12 06/22/25 05:11 37.3 C 108 H 28 H 186/106 H 99 06/22/25 05:09 37.3 C 122 H 15 186/106 H 93 06/22/25 05:05 06/22/25 05:03 116 H 16 97 06/22/25 05:00 06/22/25 05:00 37.3 C 108 H 18 186/106 H 99 06/22/25 04:32 37.4 C 115 H 20 178/98 H 95 06/22/25 03:36 104 H 20 167/105 H 95 06/22/25 02:30 115 H 22 167/88 H 95 06/22/25 02:13 132 H 06/22/25 01:30 120 H 22 155/87 H 95 06/22/25 00:31 182/84 H 06/22/25 00:25 37.2 C 114 H 22 193/88 H 97 06/21/25 22:48 95 06/21/25 22:47 157/119 H 06/21/25 22:18 84 06/21/25 21:59 36.8 C 111 H 19 190/101 H 96 Pulse Ox O2 Del Method O2 Del Method 06/22/25 09:00 Room Air 06/22/25 08:00 Room Air 06/22/25 08:00 06/22/25 07:00 06/22/25 06:36 Room Air 06/22/25 06:30 Room Air 06/22/25 06:00 Room Air 06/22/25 05:59 06/22/25 05:12 06/22/25 05:12 99 Room Air 06/22/25 05:11 Room Air 06/22/25 05:09 Room Air 06/22/25 05:05 Room Air 06/22/25 05:03 Room Air 06/22/25 05:00 Room Air 06/22/25 05:00 Room Air 06/22/25 04:32 Room Air 06/22/25 03:36 Room Air 06/22/25 02:30 Room Air 06/22/25 02:13 06/22/25 01:30 Room Air 06/22/25 00:31 06/22/25 00:25 06/21/25 22:48 Room Air 06/21/25 22:47 06/21/25 22:18 06/21/25 21:59 Room Air Diagnostic Findings I personally reviewed his CT imaging. There is pneumomediastinum present. No pneumothorax. No obvious leak of oral contrast from the esophagus. Lungs are clear with no evidence of airway thickening or consolidations. PG Care Time/CCT Total # of Minutes Spent Total Time Spent with Patient: Total time spent is greater than 50% in coordination of care (as documented) at patient's floor/unit and/or counseling patient: Coding Level of Care Code New Pt INT OBSERVATION CARE 30M LVL 1 Patient Type New History Detailed Exam Detailed Medical Decision Making Moderate Complexity Diagnoses Pneumomediastinum J98.2 Nausea & vomiting R11.2
[2025-06-22] MEDS: PROCHLORPERAZINE 10 MG in SYRINGE 8 ML IV ONE (09:51)
--- NOTE | 2025-06-22 14:21 | Electrocardiogram Report ---
Test Reason : Blood Pressure : */* mmHG Vent. Rate : 111 BPM Atrial Rate : 111 BPM P-R Int : 158 ms QRS Dur : 88 ms QT Int : 372 ms P-R-T Axes : 57 46 28 degrees QTcB Int : 505 ms Sinus tachycardia Possible Left atrial enlargement Abnormal ECG When compared with ECG of 14-Dec-2023 21:47, Vent. rate has increased by [address] now depressed in Lateral leads Inverted T waves have replaced nonspecific T wave abnormality in Anterior leads Confirmed by Harvey Diaz ([id number] on 06/22/2025 2:21:38 PM Referred By: REFERRED SELF Confirmed By: Harvey Diaz
--- NOTE | 2025-06-22 14:30 | Electrocardiogram Report ---
Test Reason : Blood Pressure : */* mmHG Vent. Rate : 88 BPM Atrial Rate : 88 BPM P-R Int : 154 ms QRS Dur : 80 ms QT Int : 464 ms P-R-T Axes : 56 45 16 degrees QTcB Int : 561 ms Normal sinus rhythm Possible Left atrial enlargement Nonspecific ST abnormality Prolonged QT Abnormal ECG When compared with ECG of 21-Jun-2025 22:55, (unconfirmed) No significant change was found Confirmed by Harvey Diaz ([id number] on 06/22/2025 2:29:48 PM Referred By: REFERRED SELF Confirmed By: Harvey Diaz
[2025-06-22] MEDS ORDERED: hydrOXYzine HCL IM SOLN 50 MG/ML 1 ML VIAL IM PRN (16:53)
--- NOTE | 2025-06-22 17:30 | Billing Data ---
Date of Service June 22, 2025 Coding
[2025-06-22] MEDS: BUPRENORPHINE/NALOXONE 2/0.5MG TAB SL ONE ×2 (17:36→19:43)
[2025-06-22 19:07] LABS: Anion Gap 8.0 (3-11); Calcium 9.0 mg/dl (8.6-10.3); Carbon Dioxide 29.0 mmol/L (21-32); Chloride 106.0 mmol/L (98-107); Magnesium 1.8 mg/dl (1.7-2.4); Potassium 3.2 mmol/L (3.5-5.1); Sodium 143.0 mmol/L (136-145)
[2025-06-22 19:13] LABS: Blood Urea Nitrogen 10.0 mg/dl (6-23); Creatinine Clr Calc Pharmacy 141.8 ml/min; Glucose 196.0 mg/dl (70-99(Fasting))
[2025-06-22] MEDS: POTASSIUM CHLORIDE CRTAB 20 MEQ TABCR PO ONE (19:41)
--- NOTE | 2025-06-22 22:40 | Communication Note ---
Date of Service: June 22, 2025 Went to assess pt about 2 hours after second 2mg Suboxone dose given early in the night. Pt feeling well, just a little restless. Denies pain anywhere. Appears well. COWS score would be a 2 at most - no withdrawal at this time, so will hold off on further Suboxone dosing. Continue to monitor overnight. Updated nurse on plan. Alerted by nurse via TT around 01:45 that pt had two syncopal episodes and now looks unwell. Went to bedside. Pt flushed and diaphoretic, but denies pain anywhere. BP elevated to the 180s systolic, HR low 100s which improved to the 80s. Nurse states episodes witness; initially when sitting up in bed and then second one was when pt had BM. No injuries. Pt states he had a syncopal episode during day shift as well and states someone did come talk to him after but unsure who it was. Suspect syncope due to vasovagal. EKG ordered - QT further prolonged although not drastic. Also suspect worsening of withdrawal. Decided to give valium dose over another dose of Suboxone at this time after discussion with attending given sudden/quick progression of withdrawal symptoms when earlier after second dose he was doing remarkably well, and due to further QT prolongment. Reassessed at 0300 and pt subjectively feels improved, less tremulous. Vitals also improved after valium dosing. Valium dosing repeated at 0630 for recurrence of symptoms/tachycardia/HTN. Pt may benefit from reattempt at initiation during day shift. Resident Activity Tracking Resident Involvement: Resident Care Provided Care Provided: Adult [facility]
[2025-06-23 05:25] LABS: INR 1.2 (0.9-1.1); Partial Thromboplastin Time 26 Seconds (21-31); Prothrombin Time 12.7 Seconds (9.0-12.0)
--- NOTE | 2025-06-23 07:03 | Hospitalist Progress Note ---
Date of Service June 23, 2025 Assessment & Plan (1) Hypokalemia: (2) Tachycardia: (3) Nausea & vomiting: (4) Pneumomediastinum: (5) Fentanyl dependence: (6) Opioid withdrawal: Plan The patient is a 34-year-old male with no significant past medical history who presents to the emergency department with his mother for evaluation of nausea, vomiting and dehydration. He reports that on Sunday evening, 06/19, he ate chicken noodle soup which was thawed and frozen recurrently. After admission he also admitted he takes fentanyl regularly and last time he took was on 06/19( Sunday). He has been taking regularly since 1.5 years. Clinical presentation including tachycardia, HTN, dilated pupil in background of fentanyl use, Fentanyl positive on UDSA, last dose 3 days prior, nausea, vomiting defines fentanyl withdrawal, with COWS of 12 this morning, symptoms. He does have some elevated WBCs, however he was pretty dehydrated on on arrival. Admitted in PCU status, patient persisted in hyperdynamic vitals, however improving. #Fentanyl withdrawal; mild on 06/22 AM. *last dose on 06/19/2025. - COWS: 12 on presentation. - Sx: HTN, Pupil dilation, Tachycardia, Flushing, Nausea, vomiting, anxious. - S/P Suboxone 4 mg on 06/22: D1 of induction; D2 induction today. - Patient initially treated symptomatically with Diazepam Plan: Continue Suboxone Induction. Total dose 20 mg today. ( 06/23/2025) Hydroxyzine 25 mg PO as needed for agitation Metoprolol as needed for HTN/ Tachycardia. #QT prolongation - Avoid QT prolonging meds. - Optimize Mg/ K: Goal Mg. 2, K> 4. #Nausea/ Vomiting IMPROVED - Likely because of Fentanyl as well. - No diarrhoea decreases likelihood of food poisoning. Keep eye on this. Given h/o significant source for food poisoning, if episode of diarrhoea, will plan stool studies. #Hypokalemia - Repeat K: 3.1, KCL IV 10 mEQ X 4 - Follow AM lab. #HTN - Presentation as opioid withdrawal. - BP as high as 200s/ 100s. - Will plan for clonidine is BP >200. Dispo: Pending stabilization, Continue PCU tele DVT prophylaxis: Non pharma Diet: Clear liquid, If persistent vomiting.nausea; keep NPO Admission and Anticipated Discharge Date Admission Date: June 22, 2025 Supervising Physician Co-Signing Physician Notes Resident Physician Supervision Note: I personally examined the patient and verified all guerra points of history and exam, discussed case, and agree with decision making with Dr. Cornejo Patient seen twice on the calendar day of 06/23 in the afternoon when attempting to ambulate patient had tremulous shaky legs. Persistent tachycardia and hypertension Consideration of the patient having too little Suboxone as he seems to have persistent sympathetic response with his hypertension and tachycardia. However some of his neurological symptoms of the left after the Suboxone therapy and we will reevaluate his chest to be sure there is no indolent abscess forming given his pneumomediastinum prior to pushing escalation of Suboxone dosing. Cardiac exam on the outside he is a pink appears pleasant and calm despite his tachycardia and hypertension His cardiac exam is tachycardic his lungs are clear without wheezes or crackles he has no pleuritic chest pain with deep inspiration Extremities are tremulous with intention Repeat CT scan chest to evaluate for new fluid collections and pneumomediastinum. Additional dose of Suboxone in the afternoon of 08/24 with consideration of escalation of dose to 8 twice daily controlling vital signs with clonidine and metoprolol for hypertension and tachycardia I discussed the case with the resident and agree with the findings and plan as documented in the note. Any exceptions or clarifications are listed here: Documented By: Erick Morris MD Subjective Lanre lying comfortably on bed this morning when I saw him. He was occasionally shaking, showing mild tremors, however less flushed than yesterday. Pupils were regular round until this morning when I saw him. Still hypertensive, tachycardic, no fever, no headache. He had not eaten anything except some liquids this morning. Patient had significant overnight event, has 2 episodes of syncope. He go 2 doses of Valium. Most recent on this morning. Review of Systems Review of Systems: As per HPI Results & Data Results & Data Vital Signs (Past 12 Hours) Vital Signs Temp Pulse Resp BP Pulse Ox O2 Del Method 06/23/25 04:11 36.8 C 82 16 197/102 H 91 Room Air 06/23/25 02:46 168/100 H 06/23/25 02:00 184/102 H 06/22/25 21:00 36.8 C 109 H 16 183/102 H 91 Room Air
[2025-06-23 07:20] LABS: Hematocrit (blood only) 40.7 % (42.0-52.0); Hemoglobin 14.6 g/dL (14.0-18.0); Immature Granulocytes # (auto) 0.07 K/uL (0.01-0.20); Immature Granulocytes % (auto) 0.5 %; Mean Corpuscular Hemoglobin 29.3 pg (25.0-34.0); Mean Corpuscular Volume 81.6 fL (80.0-100.0); Platelet Count 289 K/uL (130-400); RDW Standard Deviation 38.4 fL (36.4-46.3); Red Blood Count 4.99 M/uL (4.70-6.10); White Blood Count 14.16 K/ul (4.8-10.8)
[2025-06-23 09:32] LABS: Alanine Aminotransferase 32.0 U/L (7-52); Albumin Globulin Ratio 1.9 (0.9-2); Albumin Level 4.6 gm/dl (3.4-5.0); Alkaline Phosphatase 83.0 U/L (34-104); Anion Gap 10.0 (3-11); Bilirubin,Total 1.2 mg/dl (0.2-1.0); Blood Urea Nitrogen 7.0 mg/dl (6-23); Calcium 9.1 mg/dl (8.6-10.3); Carbon Dioxide 30.0 mmol/L (21-32); Chloride 100.0 mmol/L (98-107); Creatinine Clr Calc Pharmacy 165.1 ml/min; Globulin 2.4 gm/dl (2.5-4.0); Glucose 149.0 mg/dl (70-99(Fasting)); Potassium 3.1 mmol/L (3.5-5.1); Sodium 140.0 mmol/L (136-145); Total Protein 7.0 gm/dl (6.0-8.3)
[2025-06-23] MEDS ORDERED: POTASSIUM CHLORIDE CRTAB 20 MEQ TABCR PO ONE (10:50)
[2025-06-23] MEDS: BUPRENORPHINE/NALOXONE 2/0.5MG TAB SL ONE ×4 (10:59→17:35)
[2025-06-23] MEDS: POTASSIUM CHLORIDE CRTAB 20 MEQ TABCR PO SCH (12:40)
[2025-06-23] MEDS ORDERED: BUPRENORPHINE/NALOXONE 8/2 MG TAB SL ONE (13:00)
[2025-06-23] MEDS: POTASSIUM CHLORIDE PWD 20 MEQ PACK PO SCH (15:09)
[2025-06-23] MEDS: OPTIRAY 320 100ml IV ONE (17:15)
--- NOTE | 2025-06-23 17:38 | Billing Data ---
Date of Service June 23, 2025 Coding Level of Care Code 58244 SUB INP/OBS CARE
--- NOTE | 2025-06-23 17:38 | CT Scan Report ---
Clinical history: Pneumomediastinum Technique: Axial computed tomography images were obtained of the chest after the administration of intravenous contrast Comparison is made to the prior CT dated 06/22/2025 Findings: The lungs appear clear without infiltrate or mass. There is no pleural effusion or pneumothorax. There is no sign of pulmonary fibrosis or other diffuse interstitial process. No endobronchial lesion is seen There is a small amount of pneumomediastinum, decreased from before There is no mediastinal, hilar, or axillary adenopathy. The thoracic aorta appears unremarkable with no sign of aneurysm or dissection. There is no pericardial effusion There is fatty infiltration of the liver. No fracture is seen. No focal osseous lesion is evident Impression: 1. Small amount of pneumomediastinum, decreased from before 2. Normal-appearing lungs 3. Fatty infiltration of the liver Electronically signed by Liu Rosenberg 06-23-2025 5:38 PM
[2025-06-23] MEDS: METOPROLOL TARTRATE 1 MG/ML VIAL IV PRN (18:06)
--- NOTE | 2025-06-23 18:47 | Electrocardiogram Report ---
Test Reason : Blood Pressure : */* mmHG Vent. Rate : 102 BPM Atrial Rate : 102 BPM P-R Int : 186 ms QRS Dur : 80 ms QT Int : 432 ms P-R-T Axes : 66 69 8 degrees QTcB Int : 563 ms Sinus tachycardia T wave abnormality, consider inferior ischemia T wave abnormality, consider anterolateral ischemia Prolonged QT Abnormal ECG When compared with ECG of 22-Jun-2025 03:09, T wave inversion more evident in Anterolateral leads Confirmed by Harvey Diaz ([id number]) on 06/23/2025 6:47:18 PM Referred By: REFERRED SELF Confirmed By: Harvey Diaz
[2025-06-23] MEDS: BUPRENORPHINE/NALOXONE 8/2 MG TAB SL ONE (19:28)
[2025-06-23] MEDS: METOPROLOL TARTRATE 1 MG/ML VIAL IV STA (21:51)
[2025-06-24 04:48] LABS: Hematocrit (blood only) 45.8 % (42.0-52.0); Hemoglobin 16.5 g/dL (14.0-18.0); Immature Granulocytes # (auto) 0.08 K/uL (0.01-0.20); Immature Granulocytes % (auto) 0.6 %; Mean Corpuscular Hemoglobin 29.1 pg (25.0-34.0); Mean Corpuscular Volume 80.8 fL (80.0-100.0); Platelet Count 299 K/uL (130-400); RDW Standard Deviation 37.3 fL (36.4-46.3); Red Blood Count 5.67 M/uL (4.70-6.10); White Blood Count 13.80 K/ul (4.8-10.8)
[2025-06-24 05:16] LABS: INR 1.2 (0.9-1.1); Partial Thromboplastin Time 25 Seconds (21-31); Prothrombin Time 12.7 Seconds (9.0-12.0)
[2025-06-24] MEDS: METOPROLOL TARTRATE 1 MG/ML VIAL IV STA (05:33)
[2025-06-24 07:56] LABS: Magnesium 2.1 mg/dl (1.7-2.4)
[2025-06-24 08:22] LABS: Anion Gap 11.0 (3-11); Calcium 9.3 mg/dl (8.6-10.3); Carbon Dioxide 27.0 mmol/L (21-32); Chloride 102.0 mmol/L (98-107); Potassium 3.3 mmol/L (3.5-5.1); Sodium 140.0 mmol/L (136-145)
[2025-06-24 08:28] LABS: Blood Urea Nitrogen 11.0 mg/dl (6-23); Creatinine Clr Calc Pharmacy 152.6 ml/min; Glucose 128.0 mg/dl (70-99(Fasting))
[2025-06-24] MEDS: GADOBUTROL 65ML VIAL IV ONE (08:46)
--- NOTE | 2025-06-24 09:06 | Magnetic Resonance Report ---
MRI OF THE BRAIN COMBO CLINICAL HISTORY: Syncopal episodes. Shakiness. COMPARISON STUDY: None. TECHNIQUE: MRI of the brain was performed utilizing various T1 and T2-weighted sequences in the axial , sagittal, and coronal planes. Contrast-enhanced sequences were acquired following the administratio n of 8 cc of Gadavist. FINDINGS: Brain parenchyma: There are no foci of restricted diffusion to suggest acute infarct. No acute intrac ranial hemorrhage, midline shift or mass effect is present. There is no intracranial mass or patholog ic enhancement. There is no significant parenchymal signal abnormality. Ventricles, sulci, and cisterns: There is no hydrocephalus. The basal cisterns are patent. There are no extra-axial collections. Pituitary and sella: Unremarkable. Intracranial vasculature: Flow-voids for the major intracranial vessels are present. Orbits: Orbital contents are unremarkable. Sinuses and mastoids: There is trace fluid within the inferior left mastoid air cells. Calvarium: No calvarial lesions are identified. Cervical cord: Partially visualized cervical spinal cord is normal in morphology and signal intensity . IMPRESSION: Unremarkable MRI of the brain. ACT 112: Negative or not required by law. Electronically signed by: Augusto Gonzalez M.D. 06/24/2025 9:04 AM
[2025-06-24] MEDS: BUPRENORPHINE/NALOXONE 8/2 MG TAB SL ONE (09:17)
[2025-06-24] MEDS: POTASSIUM CHLORIDE 10 MEQ TABCR PO SCH (09:22)
--- NOTE | 2025-06-24 09:30 | Hospitalist Progress Note ---
Date of Service June 24, 2025 Assessment & Plan (1) Hypokalemia: (2) Tachycardia: (3) Nausea & vomiting: (4) Pneumomediastinum: (5) Fentanyl dependence: (6) Opioid withdrawal: Plan The patient is a 34-year-old male with no significant past medical history who presents to the emergency department with his mother for evaluation of nausea, vomiting and dehydration. He reports that on Sunday evening, 06/19, he ate chicken noodle soup which was thawed and frozen recurrently. After admission he also admitted he takes fentanyl regularly and last time he took was on 06/19( Sunday). He has been taking regularly since 1.5 years. Initial clinical presentation including tachycardia, HTN, dilated pupil in background of fentanyl use, Fentanyl positive on UDSA, last dose 3 days prior, nausea, vomiting defines fentanyl withdrawal, with COWS of 12 on 06/22.After admission he got induction dose of Suboxone on 06/22- 06/23, did not really precipitate withdrawal. He is improving in opioid withdrawal symptoms, however Vitals and function is still not optimized. He stays hypertensive and is unable to get OOB and walk around. Shaking is worsened when he tries to do this. #Fentanyl withdrawal; mild on 06/22 AM. *last dose on 06/19/2025. - COWS: 12 on presentation. - Sx ion arrival: HTN, Pupil dilation, Tachycardia, Flushing, Nausea, vomiting, anxious. - Improving COWS; 1 as of 06/24 AM. - S/P Suboxone 4 mg on 06/22: D1 of induction 20 mg total on 06/23, D2 of induction Plan: Continue Suboxone maintenance today 8 mg BID. Hydroxyzine 25 mg PO as needed for agitation Metoprolol as needed for HTN/ Tachycardia. Continue Amlodipine 10 mg daily. #QT prolongation - Avoid QT prolonging meds. - Optimize Mg/ K: Goal Mg. 2, K> 4. #Nausea/ Vomiting IMPROVED - Likely because of Fentanyl as well. - No diarrhoea decreases likelihood of food poisoning. Keep eye on this. Given h/o significant source for food poisoning, if episode of diarrhoea, will plan stool studies. #Hypokalemia - Repeat K: 3.1, KCL IV 10 mEQ X 4 on 06.23 - KCl 20 MeQ QAM ongoing. - Follow AM lab. #HTN - Presentation as opioid withdrawal. - BP as high as 210s/ 124. - He received metoprolol 5 mg x 3 doses overnight, Amlodipine 10 mg this morning. - BP this AM: 170s/100s-- IMPROVING. Continue Amlodipine/ Metoprolol as needed. # Shaking *Disproportionate to other opioid withdrawl sx. - Overall COWs improving but pt has situational shaking, terrible shakes reported per nursing bedside while trying to get him OOB. - MRI head ordered because of same reason. I am not sure about etiology of his shaking is solely because if fentanyl withdrawal as other symptoms are im proving. He does not have shakes while lying down, except from mild tremors exhibited on his BL hands. His Blood pressures is atill high, has been on > 170s systolic for 3 days despite medication. Ordered MRI to evaluate his basal ganglia and posterior brain to see if there any underlying mass lesion. However MRI is unremarkable. - I did not find any focal weakness on exam, no focal tenderness in spines, no fever, pt not having pain in his spines makes me feel it's not his spine issue. - At this point I am continuing his Suboxone maintenance 8 mg BID. I will reassesses and add more if needed. - Will also have physical therapy evaluation. Goal is to send him home in maintenance therapy earlier if possible. - He had apt with PCP in [facility] to manage outpatient Suboxone on 06/24 7:45 AM, could not make it because of pending stabilization. I do think he will need couple days more to get stabilized to go home Plan: PT eval. Continue Suboxone. Frequent reassessment. Dispo: Pending stabilization, Continue PCU tele( pt on Metoprolol) DVT prophylaxis: Will start Lovenox prophylaxis as hospital stay is prolonging and pt not able to ambulate. Diet: Clear liquid, If persistent vomiting.nausea; keep NPO Admission and Anticipated Discharge Date Admission Date: June 22, 2025 Supervising Physician Co-Signing Physician Notes Resident Physician Supervision Note: I personally examined the patient and verified all guerra points of history and exam, discussed case, and agree with decision making with Dr. Cornejo I updated the patient's mother in the presence of the patient. Patient is improved. He is able to get out of bed to chair. He understands he needs to stay in the hospital for control of his blood pressure as this hypertension is difficult to control at this time. Remains tachycardic and hypertensive escalating medications Physical exam is awake alert appropriate he appears in no particular distress. He can spontaneously move all extremities and follows commands. Previously had some tremors with movement subsites like an intention tremor with some shakiness of his legs while in bed. These have now ice extinguished. I cannot elicit reflexes and it is difficult to tell whether he needs to be distracted to elicit reflexes however there is no focal deficits or reproducible tonus or clonus. Repeat CT scan chest to evaluate for new fluid collections and pneumomediastinum commented on possible some improvement.. Continue Suboxone 8 mg twice a day. I discussed the case with the resident and agree with the findings and plan as documented in the note. Any exceptions or clarifications are listed here: Documented By: Erick Morris MD Subjective Lanre lying comfortably on bed this morning when I saw him. Nurse on bedside and [facility] coreen MD made me aware about weird shaking he has while trying to get him out of bed. His shakes are limited to only when he is trying to stand. It sound like his head, neck and body has shakes, not only extremities. I will reassess him this afternoon to witness shake myself. Otherwise this morning Lanre was comfortable, less flushed, he felt fine subjectively, he got 3 doses of metoprolol last night with one amlodipine this morning. Still hypertensive but heart rate controlled to below 100. No loss of consciousness, no syncope, no lightheadedness. Eating normal diet. No nausea/ vomiting anymore. No fever. No focal weakness, though he overall feels fatigues. No blurring of vision. Looks in clear state of mind, no confusion. Curious when he can go home. Review of Systems Review of Systems: As per HPI Physical Exam Physical Exam: Constitutional: Mild tremors on outstretched hands, Skin flush is Improved, back to baseline, no hiccups as noted 2 days prior, no shaking appreciated on my exam. HEENT: Pupil RRR, normal size BL, Atraumatic, Normocephalic CVS: S1 S2 no murmur, Regular Rhythm, no LE edema, tachycardia Respiratory: BL equal air entry with NVBS. No rhonchi, wheezes, or crackles. No increased work of breathing GI: Soft, Nondistended, Nontender, Normal Bowel sounds + MSK: No gross deformities noted Spine: No focal tenderness in CTLS spine. Skin: Improved flushing, no localized rash or piloerection noted. Neuro: Alert, Oriented to TPP, No Focal deficit Psych: Not anxious, calm, Cooperative on exam, able to make decision Results & Data Results & Data Vital Signs (Past 12 Hours) Vital Signs Temp Pulse Pulse Resp BP BP BP 06/24/25 06:04 76 187/115 H 06/24/25 05:33 106 H 194/117 H 06/24/25 04:45 80 194/117 H 06/24/25 04:41 194/117 H 06/24/25 04:14 90 210/124 H 06/24/25 03:39 104 H 06/24/25 00:10 37.5 C 118 H 20 169/107 H 06/23/25 22:59 179/109 H 06/23/25 22:15 179/118 H 06/23/25 22:13 101 H 198/126 H 06/23/25 21:51 94 H 198/126 H Pulse Ox O2 Del Method 06/24/25 06:04 06/24/25 05:33 06/24/25 04:45 06/24/25 04:41 06/24/25 04:14 06/24/25 03:39 06/24/25 00:10 99 Room Air 06/23/25 22:59 06/23/25 22:15 06/23/25 22:13 06/23/25 21:51 Resident Activity Tracking Resident Involvement: Resident Care Provided Care Provided: Adult Hospital Medicine
[2025-06-24] MEDS: ENOXAPARIN INJ 40 MG/0.4 ML SYR SQ SCH (11:28)
[2025-06-24] MEDS: CYANOCOBALAMIN 1000 MCG/ML VIAL IM ONE (12:54)
[2025-06-24] MEDS: THIAMINE HCL 100 MG TAB PO SCH (12:54)
[2025-06-24] MEDS: METOPROLOL SUCC 25MG EXT REL TAB PO SCH (12:54)
[2025-06-24] MEDS: FOLIC ACID 1 MG TAB PO SCH (12:54)
[2025-06-24] MEDS ORDERED: POLYETHYLENE (MIRALAX) 17 GM PACK PO PRN (13:55)
--- NOTE | 2025-06-24 14:01 | Billing Data ---
Date of Service June 24, 2025 Coding Level of Care Code 64821 SUB INP/OBS CARE
[2025-06-24] MEDS: BUPRENORPHINE/NALOXONE 8/2 MG TAB SL SCH (20:06)
[2025-06-25 05:13] LABS: Hematocrit (blood only) 47.7 % (42.0-52.0); Hemoglobin 17.5 g/dL (14.0-18.0); Immature Granulocytes # (auto) 0.10 K/uL (0.01-0.20); Immature Granulocytes % (auto) 0.8 %; Mean Corpuscular Hemoglobin 29.8 pg (25.0-34.0); Mean Corpuscular Volume 81.3 fL (80.0-100.0); Platelet Count 339 K/uL (130-400); RDW Standard Deviation 37.2 fL (36.4-46.3); Red Blood Count 5.87 M/uL (4.70-6.10); White Blood Count 12.70 K/ul (4.8-10.8)
[2025-06-25 05:28] LABS: Anion Gap 8.0 (3-11); Blood Urea Nitrogen 17.0 mg/dl (6-23); Calcium 9.3 mg/dl (8.6-10.3); Carbon Dioxide 29.0 mmol/L (21-32); Chloride 101.0 mmol/L (98-107); Creatinine Clr Calc Pharmacy 132.5 ml/min; Glucose 107.0 mg/dl (70-99(Fasting)); Potassium 3.2 mmol/L (3.5-5.1); Sodium 138.0 mmol/L (136-145)
[2025-06-25 05:49] LABS: INR 1.1 (0.9-1.1); Partial Thromboplastin Time 25 Seconds (21-31); Prothrombin Time 11.5 Seconds (9.0-12.0)
[2025-06-25 06:12] LABS: Vitamin B12 > 1500 pg/ml (180-914)
[2025-06-25 06:28] LABS: Folate (Folic Acid),Ser orPlas 15.63 ng/ml (>5.38)
[2025-06-25] MEDS: POTASSIUM CHLORIDE PWD 20 MEQ PACK PO SCH (08:35)
[2025-06-25] MEDS: LACTATED RINGER'S 500 ML IV ONE (11:39)
[2025-06-25] MEDS: METOPROLOL TARTRATE 1 MG/ML VIAL IV PRN (11:45)
--- NOTE | 2025-06-25 11:55 | Hospitalist Progress Note ---
Date of Service June 25, 2025 Assessment & Plan (1) Hypokalemia: (2) Tachycardia: (3) Nausea & vomiting: (4) Pneumomediastinum: (5) Fentanyl dependence: (6) Opioid withdrawal: Plan The patient is a 34-year-old male with no significant past medical history who presents to the emergency department with his mother for evaluation of nausea, vomiting and dehydration. He reports that on Sunday evening, 06/19, he ate chicken noodle soup which was thawed and frozen recurrently. After admission he also admitted he takes fentanyl regularly and last time he took was on 06/19( Sunday). He has been taking regularly since 1.5 years. Initial clinical presentation including tachycardia, HTN, dilated pupil in background of fentanyl use, Fentanyl positive on UDSA, last dose 3 days prior, nausea, vomiting defines fentanyl withdrawal, with COWS of 12 on 06/22. After admission he got induction dose of Suboxone on 06/22- 06/23. He is improving in opioid withdrawal symptoms, however Vitals and function is still not optimized. On 06/25 after AM dose of Suboxone patient's tachycardia worsened to >130. He was flushed and mom was concerned of possible Euphoria. #Fentanyl withdrawal; mild on 06/22 AM. *last dose on 06/19/2025. - COWS: 12 on presentation. - Sx ion arrival: HTN, Pupil dilation, Tachycardia, Flushing, Nausea, vomiting, anxious. - Improving COWS; 1 as of 06/25 AM( around 7:45 AM), increased to around 11 after AM dose of Suboxone. Pt has significant tachycardia, piloerection, flushing after Suboxone. - S/P Suboxone 4 mg on 06/22: D1 of induction 20 mg total on 06/23, D2 of induction 8 mg BID since 06/24. - Trial of clonidine in beginning of induction was not helpful for HTN/ HR control. However this is an ideal choice for his situation. Failure of trial in beginning could be because of suboptimal Suboxone at the moment, however given the fact metoprolol controlled his HR and Tachycardia, this was continued. Plan: Continue Suboxone maintenance today 8 mg BID. Metoprolol as needed for HTN /Tachycardia. Continue Amlodipine 10 mg daily and Metoprolol 25 mg BID. -If tachycardia fails to improve throughout today we can have trial of clonidine again and reassess. At this point Suboxone should be close to optimal. Even though literature mention we can go as high as 32 mg total dose, with the with drawal symptoms precipitated this morning, increasing COWs to 11, I do not feel comfortable increasing the dose further. Fentanyl withdrawal usually peaks around 2-4 days, and settles by 7-10 day. The withdrawal he is having now is Suboxone precipitation. Given the fact we are 7 approaching 7 days away from last fentanyl dose(06/19), I believe he is heading to right direction. But he needs more time to settle in his vitals. #QT prolongation - Avoid QT prolonging meds. - Optimized Mg/ K: Goal Mg. 2, K> 4. #Nausea/ Vomiting IMPROVED - Likely because of Fentanyl as well. - No diarrhoea decreases likelihood of food poisoning. Keep eye on this. Given h/o significant source for food poisoning, if episode of diarrhoea, will plan stool studies. #Hypokalemia - Repeat K: 3.2, KCL IV 10 mEQ X 4 on 06.23 - KCl 20 MeQ QAM ongoing. - Follow AM lab. #HTN - Presentation as opioid withdrawal. - BP as high as 210s/ 124 before completed Suboxone induction. - Currently on Metoprolol 25 mg BID and Amlodipine 10 mg QAM. - BP this AM: 150/100 IMPROVING. Continue Amlodipine/ Metoprolol BID and as needed. # Shaking IMPROVED TODAY *Was Disproportionate to other opioid withdrawal sx. - Overall COWs improving but pt has situational shaking, terrible shakes reported per nursing bedside while trying to get him OOB. - MRI head ordered because of same reason. I am not sure about etiology of his shaking is solely because if fentanyl withdrawal as other symptoms are improving. He does not have shakes while lying down, except from mild tremors exhibited on his BL hands. His. Ordered MRI to evaluate his basal ganglia and posterior brain to see if there any underlying mass lesion. However MRI is unremarkable. - I did not find any focal weakness on exam, no focal tenderness in spines, no fever, pt not having pain in his spines makes me feel it's not his spine issue. - At this point I am continuing his Suboxone maintenance 8 mg BID. I will reassesses and add more if needed. - Will also have physical therapy evaluation. Goal is to send him home in maintenance therapy earlier if possible. - He had apt with PCP in [facility] to manage outpatient Suboxone on 06/24 7:45 AM, could not make it because of pending stabilization. I do think he will need couple days more to get stabilized to go home. Dispo: Pending stabilization, Continue PCU tele( pt on Metoprolol) DVT prophylaxis: Will start Lovenox prophylaxis as hospital stay is prolonging and pt not able to ambulate. Diet: Clear liquid, If persistent vomiting.nausea; keep NPO Admission and Anticipated Discharge Date Admission Date: June 22, 2025 Supervising Physician Co-Signing Physician Notes Patient seen and examined, chart reviewed, case discussed with Dr. Chantal MD and I agree with the assessment and plan as above except as otherwise noted Labs and images reviewed Lanre is seen at the bedside along with resident provider. He reports he feels much better and reports he is doing a lot better than when he came in. On exam he shows ongoing signs of withdrawal including flushed skin, piloerection, sweating and sinus tachycardia running from [id number] this morning, about [id number] at the bedside. Skin is warm and he is diaphoretic with obvious moistness on the arms, shoulders, and face. He is able to sit still and subjectively feels well, pupils are not significantly dilated and he denies muscle aches. Some rhinorrhea and runny eyes. Minimal resting tremor in the hands during exam. Given above his Score is elevated and shows signs of ongoing withdrawal. He is on Suboxone 8 mg twice daily and per report had some slight euphoria with this. Recommend ongoing treatment for withdrawal symptoms and do not feel he is appropriate for discharge home given persistent sinus tach area and COWS symptoms. He has been on metoprolol for hypertension/tachycardia. Blood pressure improved on recheck. If he needs adjunct therapy given he is already on a 16mg total daily dose of buprenorphine. Increased to TID. Clonidine would be a good adjunct if needed however I have reservations regarding his risk of rebound hypertension given that he is also been started on a beta-sreedhar. Will continue this, follow withdrawal symptoms, and if he continues have persistent hypertension/tachycardia discontinue metoprolol and transition to clonidine twice daily. Agree with above Subjective Lanre lying comfortably on bed this morning when I saw him in the beginning. He was about to be transferred to different room. He was due for morning dose Suboxone. He mentioned he did not have any shaking like before, he was able to sit on chair, walk little bit inside room yesterday afternoon. He was till hypertensive but heart rate was <100 in the monitor. No loss of consciousness, no syncope, no lightheadedness. Eating normal diet. No nausea/ vomiting anymore. No fever. No focal weakness, though he overall feels fatigues. No blurring of vision. No confusion. On second round with attending, Lanre has just gotten Suboxone 20 minutes before, he was seen flushed and was tachycardic upto 130s. He was feeling warm but not feeling like passing out or confused. His hair were straight mostly on left hand. Nurse mentioned as per his mom on bedside, she found him euphoric this morning. Review of Systems Review of Systems: As per HPI Physical Exam Physical Exam: Constitutional: Mild tremors on outstretched hands, Skin flused, no hiccups as noted 2 days prior, no shaking HEENT: Pupil RRR, normal size BL, Atraumatic, Normocephalic CVS: S1 S2 no murmur, Regular Rhythm, no LE edema, tachycardia Respiratory: BL equal air entry with NVBS. No rhonchi, wheezes, or crackles. No increased work of breathing GI: Soft, Nondistended, Nontender, Normal Bowel sounds + MSK: No gross deformities noted Spine: No focal tenderness in CTLS spine. Skin: Significant flushing, no localized rash, Piloerection on BL hands noted mostly on left side Neuro: Alert, Oriented to TPP, No Focal deficit Psych: Not anxious, Cooperative on exam, able to make decision Results & Data Results & Data Vital Signs (Past 12 Hours) Vital Signs Temp Pulse Pulse Resp BP Pulse Ox O2 Del Method 06/25/25 11:22 36.8 C 106 H 18 132/82 98 Room Air 06/25/25 09:00 Room Air 06/25/25 08:00 139 H 06/25/25 02:39 36.6 C 96 H 20 154/108 H 96 Room Air 06/25/25 00:00 107 H
--- NOTE | 2025-06-25 12:36 | Billing Data ---
Date of Service June 25, 2025 Coding Level of Care Code 65722 SUB INP/OBS CARE MIN
[2025-06-25] MEDS ORDERED: POTASSIUM CHLORIDE CRTAB 20 MEQ TABCR PO SCH (12:45)
[2025-06-25] MEDS ORDERED: BUPRENORPHINE/NALOXONE 8/2 MG TAB SL ONE (14:08)
[2025-06-25] MEDS: BUPRENORPHINE/NALOXONE 8/2 MG TAB SL ONE (16:32)
[2025-06-25] MEDS ORDERED: METOPROLOL TARTRATE 1 MG/ML VIAL IV PRN (18:20)
[2025-06-25] MEDS: POTASSIUM CHLORIDE CRTAB 20 MEQ TABCR PO SCH (20:42)
[2025-06-25] MEDS: BUPRENORPHINE/NALOXONE 8/2 MG TAB SL SCH (20:42)
[2025-06-26 06:54] LABS: Anion Gap 8.0 (3-11); Blood Urea Nitrogen 18.0 mg/dl (6-23); Calcium 9.1 mg/dl (8.6-10.3); Carbon Dioxide 27.0 mmol/L (21-32); Chloride 105.0 mmol/L (98-107); Creatinine Clr Calc Pharmacy 130.8 ml/min; Glucose 92.0 mg/dl (70-99(Fasting)); Potassium 3.8 mmol/L (3.5-5.1); Sodium 140.0 mmol/L (136-145)
[2025-06-26 07:06] VITALS: RESP 22; TEMP 98.2
--- NOTE | 2025-06-26 08:39 | Hospitalist Progress Note ---
Date of Service June 26, 2025 Assessment & Plan (1) Opioid withdrawal: (2) Hypokalemia: (3) Tachycardia: (4) Nausea & vomiting: (5) Pneumomediastinum: (6) Fentanyl dependence: Plan The patient is a 34-year-old male with no significant past medical history who presents to the emergency department with his mother for evaluation of nausea, vomiting and dehydration. He reports that on Sunday evening, 06/19, he ate chicken noodle soup which was thawed and frozen recurrently. After admission he also admitted he takes fentanyl regularly and last time he took was on 06/19( Sunday). He has been taking regularly since 1.5 years. Initial clinical presentation including tachycardia, HTN, dilated pupil in background of fentanyl use, Fentanyl positive on UDSA, last dose 3 days prior, nausea, vomiting defines fentanyl withdrawal, with COWS of 12 on 06/22. After admission he got induction dose of Suboxone on 06/22- 06/23. He is improving in opioid withdrawal symptoms, however Vitals and function is still not optimized. On 06/25 after AM dose of Suboxone patient's tachycardia worsened to >130. He was flushed and mom was concerned of possible Euphoria. #Fentanyl withdrawal; mild on 06/22 AM. *last dose on 06/19/2025. - COWS: 12 on presentation. - Sx ion arrival: HTN, Pupil dilation, Tachycardia, Flushing, Nausea, vomiting, anxious. - Improving COWS; 1 as of 06/25 AM( around 7:45 AM), increased to around 11 after AM dose of Suboxone. Pt has significant tachycardia, piloerection, flushing after Suboxone. - S/P Suboxone 4 mg on 06/22: D1 of induction 20 mg total on 06/23, D2 of induction 8 mg BID since 06/24. - Trial of clonidine in beginning of induction was not helpful for HTN/ HR control. However this is an ideal choice for his situation. Failure of trial in beginning could be because of suboptimal Suboxone at the moment, however given the fact metoprolol controlled his HR and Tachycardia, this was continued. Plan: Continue Suboxone maintenance today 8 mg BID. Metoprolol as needed for HTN /Tachycardia. Continue Amlodipine 10 mg daily and Metoprolol 25 mg BID. -If tachycardia fails to improve throughout today we can have trial of clonidine again and reassess. At this point Suboxone should be close to optimal. Even though literature mention we can go as high as 32 mg total dose, with the with drawal symptoms precipitated this morning, increasing COWs to 11, I do not feel comfortable increasing the dose further. Fentanyl withdrawal usually peaks around 2-4 days, and settles by 7-10 day. The withdrawal he is having now is Suboxone precipitation. Given the fact we are 7 approaching 7 days away from last fentanyl dose(06/19), I believe he is heading to right direction. But he needs more time to settle in his vitals. #QT prolongation - Avoid QT prolonging meds. - Optimized Mg/ K: Goal Mg. 2, K> 4. #Nausea/ Vomiting IMPROVED - Likely because of Fentanyl as well. - No diarrhoea decreases likelihood of food poisoning. Keep eye on this. Given h/o significant source for food poisoning, if episode of diarrhoea, will plan stool studies. #Hypokalemia - Repeat K: 3.2, KCL IV 10 mEQ X 4 on 06.23 - KCl 20 MeQ QAM ongoing. - Follow AM lab. #HTN - Presentation as opioid withdrawal. - BP as high as 210s/ 124 before completed Suboxone induction. - Currently on Metoprolol 25 mg BID and Amlodipine 10 mg QAM. - BP this AM: 150/100 IMPROVING. Continue Amlodipine/ Metoprolol BID and as needed. # Shaking IMPROVED TODAY *Was Disproportionate to other opioid withdrawal sx. - Overall COWs improving but pt has situational shaking, terrible shakes reported per nursing bedside while trying to get him OOB. - MRI head ordered because of same reason. I am not sure about etiology of his shaking is solely because if fentanyl withdrawal as other symptoms are improving. He does not have shakes while lying down, except from mild tremors exhibited on his BL hands. His. Ordered MRI to evaluate his basal ganglia and posterior brain to see if there any underlying mass lesion. However MRI is unremarkable. - I did not find any focal weakness on exam, no focal tenderness in spines, no fever, pt not having pain in his spines makes me feel it's not his spine issue. - At this point I am continuing his Suboxone maintenance 8 mg BID. I will reassesses and add more if needed. - Will also have physical therapy evaluation. Goal is to send him home in maintenance therapy earlier if possible. - He had apt with PCP in [facility] to manage outpatient Suboxone on 06/24 7:45 AM, could not make it because of pending stabilization. I do think he will need couple days more to get stabilized to go home. Dispo: Pending stabilization, Continue PCU tele( pt on Metoprolol) DVT prophylaxis: Will start Lovenox prophylaxis as hospital stay is prolonging and pt not able to ambulate. Diet: Clear liquid, If persistent vomiting.nausea; keep NPO Admission and Anticipated Discharge Date Admission Date: June 22, 2025 Tesfaye De Dios continues to feel better, was lying comfortably on bed this morning when I saw him. He opened up little more to me this morning. He has been doing oxycodone since grade 8, brother used to give him since then.Then ended up doing Percocet. Fentanyl he has been getting since 1.5 years, snorts mostly. He tried to be out of this for 3 weeks, could not remain on it as he broke his ankle and brother had it, started taking this for pain again. On repeated question, he denied any other substance use beside marijuana, and Percocet. He admits in a bag of fentanyl that he gets from, [facility] of [facility], there are lot of junks, but he does not know what it is. No loss of consciousness, no syncope, no lightheadedness. Eating normal diet. No nausea/ vomiting anymore. No fever. No focal weakness. No blurring of vision. No confusion. Review of Systems Review of Systems: As per HPI Physical Exam Physical Exam: Constitutional: Mild tremors on outstretched hands, Skin flused, no hiccups as noted 2 days prior, no shaking HEENT: Pupil RRR, normal size BL, Atraumatic, Normocephalic CVS: S1 S2 no murmur, Regular Rhythm, no LE edema, tachycardia Respiratory: BL equal air entry with NVBS. No rhonchi, wheezes, or crackles. No increased work of breathing GI: Soft, Nondistended, Nontender, Normal Bowel sounds + MSK: No gross deformities noted Spine: No focal tenderness in CTLS spine. Skin: Significant flushing, no localized rash, Piloerection on BL hands noted mostly on left side Neuro: Alert, Oriented to TPP, No Focal deficit Psych: Not anxious, Cooperative on exam, able to make decision Results & Data Results & Data Vital Signs (Past 12 Hours) Vital Signs Temp Pulse Pulse Pulse Resp BP Pulse Ox 06/26/25 07:28 69 06/26/25 07:04 36.8 C 97 H 22 164/105 H 96 06/26/25 05:19 153/94 H 06/26/25 05:00 06/26/25 03:00 36.7 C 75 19 161/103 H 98 06/25/25 23:20 36.6 C 90 22 158/90 H 95 06/25/25 21:34 97 H Pulse Ox O2 Del Method O2 Del Method 06/26/25 07:28 06/26/25 07:04 Room Air 06/26/25 05:19 06/26/25 05:00 98 Room Air 06/26/25 03:00 Room Air 06/25/25 23:20 Room Air 06/25/25 21:34
[2025-06-26 11:49] VITALS: O2SAT 99
[2025-06-26 14:52] VITALS: BP 164/105; PULSE 75
--- NOTE | 2025-06-26 16:53 | Discharge Summary ---
Date of Service June 26, 2025 Admission HPI Per Admitting Provider The patient is a 34-year-old male with no significant past medical history who presents to the emergency department with his mother for evaluation of nausea, vomiting and dehydration. He reports that on Sunday evening, 06/19, he ate chicken noodles, that had been frozen and thawed a few times, and then on Sunday morning, 06/20 he threw up all the noodles, and has had nausea and vomiting since that time. Today, 06/21, he developed chest discomfort, progressive shortness of breath, and with the persistence of nausea and vomiting, he presented to the ED for assessment. Workup in the emergency department included following abnormal laboratories: Lactic acid initially 3.9 with follow-up 2.8, potassium 3.1, magnesium 1.7, glucose 128, WBC 14.72. COVID, flu, RSV testing was negative. Urinalysis negative. CT scan of chest, abdomen and pelvis showed mild pneumomediastinum hepatic steatosis fecal/gas in the distended colon. CT angiography of chest showed no evidence of PE or pulmonary disease. It confirmed mild pneumomediastinum noted involving the fascial plane of the superior and middle mediastinal structure. From the ED the patient received the following: Normal saline 2.5 L bolus, Zofran 4 mg IV, famotidine 20 mg IV, Toradol 10 mg IV, lorazepam 1 mg IV, Tylenol 1 g IV, Phenergan 25 mg IV, Zosyn 4.5 g IV, morphine 4 mg IV, and Protonix 40 mg IV. He was then referred for evaluation for admission to the [facility]. We had a urine drug screen, which was positive for fentanyl, which she did not receive in the ED, and marijuana. The UDS was also positive for morphi ne, which she did receive in the ED. Admission Exam Per Admitting Provider The patient is awake, alert and oriented 3, well developed and well nourished, normocephalic and atraumatic, sitting upright in chair, with intermittent rigor type shaking. HEENT--PERRL, EOMI, mucous membranes and oropharynx moist Neck--supple. No JVD. No bruits. Thyroid normal, trachea midline, no adenopathy. Heart--tachycardic and regular. No murmurs, rubs or gallops. Lungs--clear bilaterally, no respiratory distress, no accessory muscle use. Abdomen--normal bowel sounds and soft. Nontender. Nondistended, no hernias or masses, no organomegaly. Extremities--no cyanosis or clubbing. No edema. There are good distal pulses b/l. Dermatologic--crepitus anterior chest wall Neurologic--cranial nerves II through XII grossly intact. Rheumatologic--normal range of motion. Psychiatric--mildly anxious. Principal Diagnosis Fentanyl withdrawal Pneumomediastinum Suboxone treatment Discharge Exam Constitutional: Well looking, No flushing like before. HEENT: Pupil RRR, normal size BL, Atraumatic, Normocephalic CVS: S1 S2 no murmur, Regular Rhythm, no LE edema Respiratory: BL equal air entry with NVBS. No rhonchi, wheezes, or crackles. No increased work of breathing GI: Soft, Nondistended, Nontender, Normal Bowel sounds + MSK: No gross deformities noted Spine: No focal tenderness in CTLS spine. Skin: No flushing, no localized rash, Piloerection on BL hands noted mostly on left side Neuro: Alert, Oriented to TPP, No Focal deficit Psych: Not anxious, Cooperative on exam, able to make decision Discharge Data Allergies Allergy/AdvReac Type Severity Reaction Status Date / Time hydrocodone Allergy Intermediate RASH Verified 04/17/23 09:54 Penicillins Allergy Unknown unknown Verified 04/17/23 09:54 tramadol Allergy Unknown Nausea Verified 04/17/23 09:54 Consultations 06/22/25 02:53 ED Decision to Admit Stat 06/22/25 09:02 Consult Pulmonology Routine Ordered Studies 06/21/25 22:10 CT abd pelvis IV con only Stat 06/21/25 22:45 CT angio chest PE protocol Stat 06/22/25 00:54 CT chest diagnostic w con Stat 06/23/25 16:17 CT chest diagnostic w con Urgent 06/24/25 07:05 MRI Brain [MR brain wo/w con] Stat Hospital Course (1) Opioid withdrawal: (2) Hypokalemia: (3) Tachycardia: (4) Nausea & vomiting: (5) Pneumomediastinum: (6) Fentanyl dependence: Plan Lanre was admitted with Fentanyl withdrawal with initial COWs > 12, ultimately got Suboxone therapy Induction f/b maintenance. He was stabilized on 8 mg Suboxone TID. For adjunct therapy, Amlodipine, Metoprolol and zofran is used and continued upon discharge. Plan - Continue Suboxone 8 mg TID - Continue Amlodipine 10 mg QAM. - Continue Metoprolol 25 mg BID - monitor blood pressure at home. - Follow up with Dr. Ekaterina Stein at [facility] office after Jul 07. If anything happens before this, call [facility] to set up appointment with other provider. - Lanre aware of the plan. - Stable pneumomediastinum, likely due to frequent snorting vs vigorous vomiting . Patient was stable through hospital stay, If new symptoms, can refer to GI for further evaluation. Total Time Total Time Spent Total Time Spent (In Minutes): See attending's attestation. Discharge Plan Discharge Items Patient Disposition: Home - Self-Care Reason For Visit: PNEUOMEDIASTINUM, SINUS TACHY, PROLONGED QT,LOW K Discharge Diagnosis: Fentanyl withdrawl Condition on Discharge: Fair Activity: Resume your previous activity Non-emergency contact: Primary Care Provider Call non-emergency contact if: your symptoms worsen Follow-up/Referrals: Ekaterina Stein, DO [Physician] - (Scheduled for tomorrow 07/07) PCP,NO [Primary Care Provider] - Diet: Regular Addtl Attending Provider Instructions: You were admitted to the hospital for management of nausea and vomiting that is thought to be related to symptoms of opioid withdrawal. As a result of your frequent vomiting during this time, you may have developed a small tear in your eating tube (esophagus) which lead to something called pneumomediastinum (air in the middle part of your chest). Reassuring part was that the air trapped in middle of your chest stayed stable on repeat scan. You did not have any problem swallowing, eating food and had no more vomiting. If you develop any symptoms, We would encourage you discuss with PCP. With regards to your nausea and vomiting and the small injury to your esophagus you may have developed as a result of this, we treated you with IV antibiotics to manage any possible infection that may have been present, and also used medications to get your nausea/vomiting under better control and increase your tolerance of foods. Fortunately, your nausea improved and you were able to eat more than you had been before your arrival to the hospital. Therefore, we will be discharging you with a medication called Zofran, which you can use every 6 hours as needed to help with nausea if you were to experience this after discharge. If you continued to be nauseous, we do encourage you to try and eat as you are able, whether it be smaller but more frequent meals/snacks, and to keep up with oral hydration to replace any fluids you may be losing by vomiting. With regards to your opioid withdrawal, we treated your symptoms with medications to help you feel better while going through your withdrawal, and we also started you on a medication called Suboxone to help with some of your withdrawal symptoms and to help you in your [employer] recovery and your path to becoming free of opioids. We will be sending a script to your pharmacy for Suboxone to take three times a day every day. As discussed, this medication has possible adverse effects such as precipitate/cause withdrawal symptoms, which would be similar to those you have been experiencing over the last few days. While taking Suboxone, we advise you avoid using other opioids due to risk of overdose. If you were to suddenly stop taking Suboxone, you would also be at risk of having withdrawal symptoms, therefore we advise you continue to take Suboxone as advised above. As part of your symptoms of withdrawal, your blood pressure has been elevated, and we have been trying to control with with medications as mentioned above. Since your blood pressure is still elevated 2 days prior to discharge, we will be sending medication your pharmacy called Amlodipine 10 mg and metoprolol 25 mg BID. Please take Amlodipine 10 mg by mouth once every day and metoprolol 25 mg twice daily. We called to schedule an appointment for you with Dr. Ekaterina Stein in the [facility] in [address] [place] [address] tomorrow (07/07. We advise you keep this visit to see how you have been doing with your Suboxone and how you have progressed with your symptoms. A discharge summary will be sent to your primary care physician to ensure continuity of care. Please bring this discharge summary with you to your next office appointment so that your provider can review it at that time. Medications: Your medication list has been reviewed and reconciled upon discharge to ensure accuracy and continuity of care. An updated list of all your medications is included with your hospital discharge paperwork. Please review this list closely, and make note of any changes. CONTACT YOUR PRIMARY CARE PROVIDER if you experience any of the following: Worsening of symptoms Fever, chills, or fatigue Difficulty following your treatment plan, or difficulty taking medications CALL 911 OR GO TO THE EMERGENCY DEPARTMENT if you experience any of the following: Sudden, severe abdominal pain or nausea/vomiting Severe chest pain, or chest pain that radiates (moves) to your jaw or arm Sudden, severe shortness of breath or difficulty breathing Thank you for allowing us to participate in your care. Pending Studies at Discharge: No Stand-Alone Forms: [facility], Smoking Cessation Medications and DC Order Prescriptions: New buprenorphine-naloxone 8-2 mg Tablet, Sublingual 1 tab sublingual TID Qty: 36 0RF metoprolol succinate [Toprol XL] 25 mg tablet extended release 24 hr 25 mg PO BID Qty: 30 0RF amlodipine 10 mg tablet 10 mg PO DAILY Qty: 30 0RF ondansetron HCl 4 mg tablet 4 mg PO DAILY Qty: 7 0RF pantoprazole [Protonix] 40 mg tablet,delayed release (DR/EC) 40 mg PO DAILY Qty: 10 0RF Discharge Orders: Discharge Order (Routine); Ordered 06/26/25 Ordered By: Susana Meraz/Other Patient Handouts: Addiction Recovery Counseling, Addiction Recovery Relapse Admission Data Admit Date/Time: 06/22/25 03:58 Attending Provider: Fransisco Cramer Admit Provider: Willis Lanza Primary Care Provider: PCP,NO Other Providers: Bernie Tom Other Interventions: Discharge Summary Assessment (RN) Last Done: 06/26/25 14:50 Supervising Physician Co-Signing Physician Notes Patient seen and examined, chart reviewed, case discussed with Dr. Chantal MD and I agree with the assessment and plan as above except as otherwise noted Labs and images reviewed Lanre is seen at the bedside along with resident provider. He reports he feels much better and reports he is doing a lot better than when he came in. Asking to be discharged, Vital signs better controlle.d Withdrawal symptoms also controlled. will continue suboxone as stated ynes murphy. Regarding pneumomediastinum, no further workup as of now. Discussed with GI as a curbside. No intervention or consultn needed after case was discussed. Spent over 35 minutes formulating discharge plan, reviewing chart, patient encounter Agree with above
--- NOTE | 2025-06-30 09:30 | Coding Query ---
To promote full compliance with coding requirements relating to patient care, provider participation is requested in all cases of braille coder uncertainty. Please assist us with the question(s) below: Coding Question(s): The diagnosis below was documented in the ER and H&P, then subsequently fell off all further documentation. Please indicate if it is still a possible diagnosis or ruled out. Physician's Response(s): SEPSIS ( ) Diagnosed ( xxx ) Ruled out ( ) Other (please specify) MTDD
--- NOTE | 2025-07-02 23:40 | Billing Data ---
Date of Service June 26, 2025 Coding Level of Care Code 61653 INP/OBS DISCH >30 MIN Time Spent (min) 32
[2025-07-03 05:22] LABS: Hydrocodone Urine NEGATIVE ng/mL (<50); Hydromor Urine NEGATIVE ng/mL (<50); Marijuana Quant, GCMS Urine 245 ng/mL (<5); Norfentanyl, Urine >500.0 ng/mL (<0.5); Noroxycodone Urine >10000 ng/mL (<50); Oxymorph Urine 3460 ng/mL (<50); medMATCH Fentanyl, Urine DNR; medMATCH Norfentanyl, Urine DNR
== END 2025-06-26 15:03 | disposition home or self-care (01) | DRG 897 ==
LOC: ED 21:57 → 1E 06-22 03:58 → SUATTDRO 06-22 03:58 → 1E 06-22 05:05 → 2S 06-25 07:29